=== PATIENT | male | born 1965 | race Caucasian/White ===

== ENCOUNTER 2020-09-17 11:15 | Outpatient (REF) | payer BC, SELFPAY ==
[2020-09-17 13:19] LABS: MANUAL DIFF FLAG NO
[2020-09-17 13:22] LABS: Basophils Absolute Auto 0.1 X10*3/uL (0.0-0.2); Basophils Percent Auto 0.8 % (0-2); Eosinophils Absolute Auto 0.3 X10*3/uL (0.0-0.4); Eosinophils Percent Auto 3.2 % (0-4); Hematocrit 43.7 % (42-52); Imm Gran Abs Auto 0.03 X10*3/uL (0.00-0.03); Imm Gran Pct Auto 0.4 % (0.0-0.4); Lymphocytes Absolute Auto 2.8 X10*3/uL (1.2-4.9); Lymphocytes Percent Auto 36.3 % (20-40); Mean Corpuscular HGB Conc 34.3 g/dl (31.0-36.0); Mean Corpuscular Hemoglobin 29.9 pg (27.0-33.0); Mean Corpuscular Volume 87.2 fL (80-98); Mean Platelet Volume 9.4 fL (9.4-12.4); Monocytes Absolute Auto 0.6 X10*3/uL (0.1-1.2); Monocytes Percent Auto 7.5 % (2-11); Neutrophils Percent Auto 51.8 % (45-73); Platelet Count 300 X10*3/uL (160-400); Red Blood Count 5.01 X10*6/uL (4.60-5.80); Red Cell Distribution Width 11.9 % (11.0-16.0); White Blood Count 7.7 X10*3/uL (4.8-10.8)
[2020-09-17 13:58] LABS: Alanine Aminotransferase 28 U/L (0-40); Albumin Level 4.5 g/dL (3.5-5.0); Alkaline Phosphatase 67 U/L (39-117); Anion Gap 12 (12-20); Aspartate Amino Transferase 22 U/L (5-37); Bilirubin Total 0.3 mg/dL (0.0-1.0); Blood Urea Nitrogen 18 mg/dL (9-16); Calcium 9.9 mg/dL (8.4-10.2); Carbon Dioxide 27 mmol/L (22-29); Chloride 104 mmol/L (96-108); Estimated Glomerular Filt Rate > 60; Glucose Random 96 mg/dL (60-115); Potassium 4.7 mmol/L (3.3-5.1); Sodium 138 mmol/L (135-145); Total Protein 6.7 g/dL (6.5-8.0)
== END 2020-09-17 11:16 | disposition home or self-care (01) ==
LOC: HO.LAB 11:15
PROVIDERS: PCP Nurse Practitioner Family; Referring Provider Nurse Practitioner Family; Visit Provider Nurse Practitioner
DX: Z01.818 Encounter for other preprocedural examination (principal)
CPT/HCPCS: 36415; 80053; 85025

== ENCOUNTER 2020-10-30 12:17 | Day surgery (SDC) | payer BC, SELFPAY ==
[2020-10-25 10:44] VITALS: BMI 39.1
--- NOTE | 2020-10-29 09:06 | HO.ANESPROP2 ---
Documented by User: Alicia Burdick NP 10/29/20 09:07 HPI - Anesthesia Eval Consult details Narrative: 55yo M for Colonoscopy [facility] Active Problems Active Problems: All Active Problems (Updated 10/25/20 @ 10:40 by Amber Lewis RN) Screening for colon cancer (Acute) Past Medical History Medical History (Updated 10/25/20 @ 10:40 by Amber Lewis RN) Back pain Elevated cholesterol Sciatica Surgical History Surgical History (Updated 10/25/20 @ 10:40 by Amber Lewis RN) No pertinent past surgical history Social History Social History Patient Tobacco Use Status: Tobacco use Unknown Advance Directives Information Provided: No Advance Directives on File: No Meds Allergies Allergy/AdvReac Type Severity Reaction Status Date / Time Antihistamines AdvReac Intermediate Rash Uncoded 10/25/20 10:40 Exam Exam Date and Time: October 29, 2020905 Height,Weight and Vital Signs: Height 5 ft 9 in Weight 120.202 kg Pertinent Lab Results Pertinent Lab Results: Laboratory Tests 09/17/20 09/17/20 12:42 12:42 WBC 7.7 Hgb 15.0 Hct 43.7 Plt Count 300 Sodium 138 Potassium 4.7 Chloride 104 Carbon Dioxide 27 BUN 18 H Creatinine 0.92 Assessment and Plan Assessment Anesthesia Assessment: Chart Reviewed Documented by User: Rosas Perez MD 10/30/20 13:21 PMFSH Past Medical History Medical History (Updated 10/25/20 @ 10:40 by Amber Lewis RN) Back pain Elevated cholesterol Sciatica Family History Family history of problems with anesthesia: No Surgical History Surgical History (Updated 10/25/20 @ 10:40 by Amber Lewis RN) No pertinent past surgical history History of Problems with Anesthesia: No Social History Social History Patient Tobacco Use Status: Tobacco use Unknown Advance Directives Information Provided: No Advance Directives on File: No Meds Allergies Allergy/AdvReac Type Severity Reaction Status Date / Time Antihistamines AdvReac Intermediate Rash Uncoded 10/25/20 10:40 Exam Airway Mallampati Class: II TM Dist: >3cm Neck ROM: Full Loose/Missing/Broken Teeth: No Other: Short, thick neck Assessment and Plan Assessment Anesthesia Assessment: Anesthesia Plan Discussed Final Anesthetic Review Family History of Problems with Anesthesia: No History of Problems with Anesthesia: No NPO: Yes ASA Class: II Final Preanesthetic Review: No Changes in Pt Med Stat, Meds/Allgs Chart Reviewed, Consent Obtained/Reviewed and Anes Risks/Benef Reviewed Patient Risk: Intermediate Procedure Risk: Low Anesthetic Plan Anesthetic Plan: MAC: Disposition: Standard PACU
[2020-10-30 12:46] VITALS: BP 151/98; PULSE 60; RESP 16; TEMP 36.8; O2SAT 98
--- NOTE | 2020-10-30 13:26 | MHC.SHP ---
Pre-Procedural Eval Section A Date of Service: 10/30/20 The patient is an INPATIENT: No The History & Physical has been completed within 30 days and I have reviewed it.: No Section B Chief Complaint: Colon cancer Screening Details of Present Illness: Colon cancer screening, constipation Relevant Family History (Specify if Yes): No Relevant Social History: None Present Medications: see Short Stay Collaborative assessment Medical History: Significant History (Back pain, sciatica) Allergies: Allergies Allergy/AdvReac Type Severity Reaction Status Date / Time Antihistamines AdvReac Intermediate Rash Uncoded 10/25/20 10:40 Review of Systems Sugical H&P ROS: Negative: Constitution, Cardiovascular and Gastrointestinal Exam Surgical H&P Exam: Normal: Heart, Normal: Lungs, Normal: Extremities and Normal: Abdomen Plan Diagnosis/Plan: Unchanged I have reviewed the history and physical and performed a pertinent physical examination on my patient. No changes have occurred unless specified.
--- NOTE | 2020-10-30 13:28 | P.OP_ITS ---
Operative Note Operative Note Date of Service: 10/30/20 Narrative: Pre-op diagnosis:?Colon cancer screening Post-op diagnosis:?other (Colon polyps, diverticulosis, hemorrhoids) Procedure:? COLONOSCOPY TILL CECUM WITH BIOPSIES AND SNARE POLYPECTOMY Consent: Indications for the procedure and potential complications of bleeding, perforation, reaction to medications and missed diagnosis were discussed with the patient and informed consent was obtained. Instrument: Olympus PCF H 190 L variable stiffness pediatric colonoscope Monitoring: Vital signs and clinical assessment, intermittent blood pressure monitoring, continuous EKG monitoring, Pulse oximetry and Carbon Dioxide monitoring were done throughout the procedure. Colon withdrawl time was 30 minutes. Procedure: The patient was placed in the left lateral decubitis position and pre-procedure medications were administered. After a digital rectal examination of the ano-rectum, the video colonoscope was inserted into the rectum and advanced through the colon to the cecum. The colonoscope was slowly withdrawn in a retrograde panoramic fashion and the colon mucosa was carefully examined including a retroflexed view of the rectum. Findings and interventions are described below. Procedure Difficulty: Colon was long and there was spasm throughout the colon. No manuvers were required Findings: Terminal Ileum: Not evaluated Cecum:? A 4-5 mm sessile polyp near the appendicular orifice removed with a cold bx. Ascending Colon:? Normal Transverse Colon:? A 7-8 mm polyp versus inverted diverticulum in the proximal TC - biopsied.? A 10 mm pedunculated polyp at 100 cms removed with a hot snare Descending Colon:? Moderate diverticulosis Sigmoid Colon:? Moderate diverticulosis Rectum:? Normal Ano-rectum:? Moderate internal hemorrhoids Colon preparation:? Good despite copious irrigation and fair in some areas of the colon. Impression and Post Procedure Diagnosis: Colonoscopy Findings: Three small to medium sized polyps removed Moderate diverticulosis seen in the entire colon Moderate hemorrhoids on retroflexed exam. Plan: Await pathology results Patient has an appointment on 11/13/20 in the GI Clinic with? Sasha Villa NP. Repeat Colonoscopy interval based on path results - in 3 years if polyps are adenomatous and 10 years if polyps are hyperplastic. Above findings were reviewed with the patient and colon polyps and diverticulosis handouts were given in the discharge area Surgeon:?Evita Mitchell MD Anesthesia:?MAC (Chary Leung CRNA) Was an Supervisor Furnace Process used for this Procedure?:?Yes Supervisor Furnace Process:?[facility] Estimated blood loss (mL):?0 Pathology:?other (A. cecal polyp? B. transverse colon polyp? C. transverse colon polyp at 100 cm) Condition:?stable Disposition:?PACU
[2020-10-30 15:18] VITALS: BP 117/64; PULSE 70; RESP 18; TEMP 36.1; O2SAT 96
[2020-10-30 15:30] VITALS: BP 121/79; PULSE 60; RESP 18; TEMP 36.1; O2SAT 96
== END 2020-10-30 15:50 | disposition home or self-care (01) ==
PROVIDERS: PCP Nurse Practitioner Family; Visit Provider Internal Medicine Gastroenterology
PROC: 0DJD8ZZ Inspection of Lower Intestinal Tract, Via Natural or Artificial Opening Endoscopic (ICD-10-PCS; CPT 45378; principal; 2020-10-30 13:20)
DX: Z12.11 Encounter for screening for malignant neoplasm of colon (principal); D12.0 Benign neoplasm of cecum; K63.5 Polyp of colon; K57.30 Diverticulosis of large intestine without perforation or abscess without bleeding; K64.8 Other hemorrhoids
CPT/HCPCS: 45385; 45380; 88305

== ENCOUNTER → 2020-11-13 11:54 | Outpatient (BNVA) | payer BC, SELFPAY | PROVIDERS: PCP Nurse Practitioner Family; Referring Provider Nurse Practitioner Family; Visit Provider Nurse Practitioner ==

== ENCOUNTER 2021-01-18 06:05 | Outpatient (REF) | payer BC, SELFPAY ==
[2021-01-18 11:42] LABS: Appearance Urine CLOUDY; Color Urine YELLOW; Glucose Urine UA NEG (NEG); Leukocyte Esterase Urine NEG (NEG); Nitrite Urine NEG (NEG); Specific Gravity - Urine >= 1.030 (1.005-1.025); Urine Blood NEG (NEG); Urine Ketones NEG (NEG); Urine Protein NEG (NEG-TRACE)
[2021-01-18 12:04] LABS: Alanine Aminotransferase 32 U/L (0-40); Albumin Level 4.5 g/dL (3.5-5.0); Alkaline Phosphatase 65 U/L (39-117); Anion Gap 15 (12-20); Aspartate Amino Transferase 24 U/L (5-37); Bilirubin Total 0.9 mg/dL (0.0-1.0); Blood Urea Nitrogen 22 mg/dL (9-16); Calcium 9.7 mg/dL (8.4-10.2); Carbon Dioxide 26 mmol/L (22-29); Chloride 103 mmol/L (96-108); Cholesterol 210 mg/dL; Estimated Glomerular Filt Rate > 60; Glucose Fasting 125 mg/dL (60-99); HDL Cholesterol 31 mg/dL; LDL Cholesterol Calculated 117 mg/dl; Potassium 4.9 mmol/L (3.3-5.1); Sodium 139 mmol/L (135-145); Total Protein 7.2 g/dL (6.5-8.0); Triglycerides 313 mg/dL
[2021-01-18 12:28] LABS: TSH reflex Free T4 1.25 uIU/mL (0.32-4.0)
[2021-01-18 12:43] LABS: Prostate Specific Antigen Scr 0.52 ng/mL (<0.05-4.0)
== END 2021-01-18 06:06 | disposition home or self-care (01) ==
LOC: HO.HMGCLDS 06:05
PROVIDERS: PCP Nurse Practitioner Family; Visit Provider Nurse Practitioner Family
DX: I10 Essential (primary) hypertension (principal); Z12.5 Encounter for screening for malignant neoplasm of prostate
CPT/HCPCS: 36415; 80053; 80061; 81003; 84153; 84443

== ENCOUNTER 2021-07-26 05:59 | Outpatient (REF) | payer BC, SELFPAY ==
[2021-07-26 11:18] LABS: MANUAL DIFF FLAG NO
[2021-07-26 11:23] LABS: Basophils Percent Auto 0.6 % (0-2); Eosinophils Absolute Auto 0.2 X10*3/uL (0.0-0.4); Eosinophils Percent Auto 2.9 % (0-4); Hematocrit 45.7 % (42.0-52.0); Hemoglobin 15.2 g/dl (14.0-18.0); Imm Gran Abs Auto 0.02 X10*3/uL (0.00-0.03); Imm Gran Pct Auto 0.3 % (0.0-0.4); Lymphocytes Absolute Auto 2.3 X10*3/uL (1.2-4.9); Lymphocytes Percent Auto 36.9 % (20-40); Mean Corpuscular HGB Conc 33.3 g/dl (31.0-36.0); Mean Corpuscular Hemoglobin 29.2 pg (27.0-33.0); Mean Corpuscular Volume 87.9 fL (80.0-98.0); Mean Platelet Volume 9.7 fL (9.4-12.4); Monocytes Absolute Auto 0.5 X10*3/uL (0.1-1.2); Monocytes Percent Auto 7.8 % (2-11); Neutrophils Absolute Auto 3.2 x10*3/uL (2.0-8.3); Neutrophils Percent Auto 51.5 % (45-73); Platelet Count 302 X10*3/uL (160-400); Red Cell Distribution Width 12.8 % (11.0-16.0); White Blood Count 6.2 X10*3/uL (4.8-10.8)
[2021-07-26 11:33] LABS: Appearance Urine CLEAR; Color Urine YELLOW; Glucose Urine UA NEG (NEG); Leukocyte Esterase Urine NEG (NEG); Nitrite Urine NEG (NEG); Specific Gravity - Urine 1.025 (1.005-1.025); UACC Culture Trigger NO; Urine Blood TRACE (NEG); Urine Ketones NEG (NEG); Urine Protein NEG (NEG-TRACE)
[2021-07-26 11:45] LABS: Alanine Aminotransferase 33 U/L (0-40); Albumin Level 4.5 g/dL (3.5-5.0); Alkaline Phosphatase 61 U/L (39-117); Anion Gap 13 (12-20); Aspartate Amino Transferase 21 U/L (5-37); Bilirubin Total 0.5 mg/dL (0.0-1.0); Blood Urea Nitrogen 15 mg/dL (9-16); Calcium 9.5 mg/dL (8.4-10.2); Carbon Dioxide 24 mmol/L (22-29); Chloride 105 mmol/L (96-108); Cholesterol 209 mg/dL; Estimated Glomerular Filt Rate > 60; Glucose Fasting 121 mg/dL (60-99); HDL Cholesterol 30 mg/dL; Potassium 4.5 mmol/L (3.3-5.1); Sodium 137 mmol/L (135-145); Total Protein 7.2 g/dL (6.5-8.0); Triglycerides 527 mg/dL
[2021-07-26 11:56] LABS: TSH reflex Free T4 2.35 uIU/mL (0.32-4.0)
[2021-07-26 11:57] LABS: Bacteria Urine TRACE /LPF; Mucus Urine TRACE /LPF; Squamous Epithelial Cell Urine TRACE /LPF; WBC Urine 0-2 /HPF (0-4)
== END 2021-07-26 06:00 | disposition home or self-care (01) ==
LOC: HO.HMGCLDS 05:59
PROVIDERS: Visit Provider Nurse Practitioner Family
DX: I10 Essential (primary) hypertension (principal); E78.5 Hyperlipidemia, unspecified
CPT/HCPCS: 36415; 80053; 80061; 81001; 84443; 85025

== ENCOUNTER 2021-09-27 06:22 | Outpatient (REF) | payer BC, SELFPAY ==
[2021-09-27 11:33] LABS: Urine Cytology See Pathology rpt
[2021-09-27 12:02] LABS: Appearance Urine Cloudy; Color Urine Yellow; Glucose Urine UA Negative (Negative); Leukocyte Esterase Urine Negative (Negative); Nitrite Urine Negative (Negative); PH 5.5 (5.0-8.0); Specific Gravity - Urine >= 1.030 (1.005-1.025); Urine Blood Negative (Negative); Urine Ketones Negative (Negative); Urine Protein Negative (Neg-Trace)
[2021-09-27 12:09] LABS: Alanine Aminotransferase 58 U/L (0-40); Albumin Level 4.6 g/dL (3.5-5.0); Alkaline Phosphatase 69 U/L (39-117); Anion Gap 13 (12-20); Aspartate Amino Transferase 34 U/L (5-37); Bilirubin Total 0.9 mg/dL (0.0-1.0); Blood Urea Nitrogen 19 mg/dL (9-16); Calcium 9.6 mg/dL (8.4-10.2); Carbon Dioxide 27 mmol/L (22-29); Chloride 102 mmol/L (96-108); Cholesterol 174 mg/dL; Estimated Glomerular Filt Rate > 60; Glucose Fasting 135 mg/dL (60-99); HDL Cholesterol 35 mg/dL; LDL Cholesterol Calculated 60 mg/dl; Potassium 4.4 mmol/L (3.3-5.1); Sodium 138 mmol/L (135-145); Total Protein 7.3 g/dL (6.5-8.0); Triglycerides 397 mg/dL
[2021-09-27 12:24] LABS: Other Crystals Urine Present
[2021-09-27 12:25] LABS: Bacteria Urine None Seen (None Seen); Hyaline Casts Urine 0-2 /LPF (0-2); RBC Urine 0-2 /HPF (0-2); Squamous Epithelial Cell Urine 0-2 /HPF (0-2); WBC Urine 0-5 /HPF (0-5)
== END 2021-09-27 06:23 | disposition home or self-care (01) ==
LOC: HO.HMGCLDS 06:22
PROVIDERS: PCP Nurse Practitioner Family; Visit Provider Nurse Practitioner Family
DX: R31.29 Other microscopic hematuria (principal); E78.5 Hyperlipidemia, unspecified
CPT/HCPCS: 36415; 80053; 80061; 81001; 87086; 88112

== ENCOUNTER 2021-10-02 09:56 | Outpatient (REF) | payer BC, SELFPAY ==
--- NOTE | ~2021-10-02 | US_ITS ---
EXAMINATION: US ABDOMEN COMPLETE CLINICAL INFORMATION: Elevated LFTs. COMPARISON: None TECHNIQUE: Real-time imaging of the abdominal viscera. FINDINGS: PANCREAS: Not well visualized due to bowel gas ABDOMINAL AORTA: The upper and mid abdominal aorta is not visualized. The distal abdominal aorta is normal in caliber. INFERIOR VENA CAVA: Visualized portions are normal. LIVER: The liver is normal in size. The liver contour is normal. The liver echotexture is increased. No focal hepatic lesion. There is no intrahepatic biliary duct dilatation seen. GALLBLADDER: Gallbladder is upper normal in size. No gallstones. Normal gallbladder wall. No pericholecystic fluid. COMMON BILE DUCT: Normal in caliber measuring 0.3 cm in diameter. RIGHT KIDNEY: Normal. No hydronephrosis. No renal calculi or focal parenchymal lesions. The kidney measures 12.1 cm in maximum dimension. LEFT KIDNEY: Normal. No hydronephrosis. No renal calculi or focal parenchymal lesions. The kidney measures 12.4 cm in maximum dimension. SPLEEN: Normal. The spleen measures 11.7 cm in maximum dimension. FREE FLUID: None. US/US abdomen complete IMPRESSION: Echogenic liver probably representing fatty infiltration. Upper normal-size gallbladder. No gallstone seen. Limited visualization of the pancreas and aorta.
== END 2021-10-02 09:57 | disposition home or self-care (01) ==
LOC: HO.HMGCX 09:56
PROVIDERS: Visit Provider Nurse Practitioner Family
DX: R74.8 Abnormal levels of other serum enzymes (principal)
CPT/HCPCS: 76700

== ENCOUNTER 2022-01-09 06:02 | Outpatient (REF) | payer BC, SELFPAY ==
[2022-01-09 12:06] LABS: HBS Num1 0.71 mIU/mL (0-7.99); HBc Num1 0.09 S/CO (0.00-0.79); HBsAGNum1 0.26 S/CO (0.00-0.99); Hepatitis B Core Antibody Nonreactive (Nonreactive); Hepatitis B Surface Antigen Negative (Negative); ~Hepatitis A Antibody IgM Nonreactive (Nonreactive); ~Hepatitis B Surface Antibody NONREACTIVE (Nonreactive); ~Hepatitis C Antibody Nonreactive (Nonreactive)
[2022-01-09 12:27] LABS: Alanine Aminotransferase 52 U/L (0-40); Albumin Level 4.6 g/dL (3.5-5.0); Alkaline Phosphatase 71 U/L (39-117); Anion Gap 10 (12-20); Aspartate Amino Transferase 35 U/L (5-37); Bilirubin Total 0.8 mg/dL (0.0-1.0); Blood Urea Nitrogen 16 mg/dL (9-16); Calcium 10.2 mg/dL (8.4-10.2); Carbon Dioxide 32 mmol/L (22-29); Chloride 100 mmol/L (96-108); Cholesterol 152 mg/dL; Estimated Glomerular Filt Rate > 60; Glucose Fasting 136 mg/dL (60-99); HDL Cholesterol 33 mg/dL; LDL Cholesterol Calculated 79 mg/dl; Potassium 5.3 mmol/L (3.3-5.1); Prostate Specific Antigen Scr 0.54 ng/mL (<0.05-4.0); Sodium 137 mmol/L (135-145); Total Protein 7.2 g/dL (6.5-8.0); Triglycerides 202 mg/dL
== END 2022-01-09 06:03 | disposition home or self-care (01) ==
LOC: HO.HMGCLDS 06:02
PROVIDERS: PCP Nurse Practitioner Family; Visit Provider Nurse Practitioner Family
DX: Z12.5 Encounter for screening for malignant neoplasm of prostate (principal); R74.8 Abnormal levels of other serum enzymes; E78.5 Hyperlipidemia, unspecified
CPT/HCPCS: 36415; 80053; 80061; 84153; 86704; 86706; 86709; 86803; 87340

== ENCOUNTER 2022-01-17 08:36 | Outpatient (REF) | payer BC, SELFPAY ==
[2022-01-17 13:25] LABS: Anion Gap 15 (12-20); Carbon Dioxide 23 mmol/L (22-29); Chloride 102 mmol/L (96-108); Potassium 4.4 mmol/L (3.3-5.1); Sodium 136 mmol/L (135-145)
== END 2022-01-17 08:37 | disposition home or self-care (01) ==
LOC: HO.HMGCLDS 08:36
PROVIDERS: PCP Nurse Practitioner Family; Visit Provider Nurse Practitioner Family
DX: E87.5 Hyperkalemia (principal)
CPT/HCPCS: 36415; 80051

== ENCOUNTER → 2022-02-12 15:17 | Outpatient (BNVA) | payer BC, SELFPAY | PROVIDERS: PCP Nurse Practitioner Family; Visit Provider Urology | DX: R31.29 Other microscopic hematuria (principal) ==

== ENCOUNTER 2022-07-23 12:40 | Outpatient (REF) | payer BC, SELFPAY ==
[2022-07-26 14:53] LABS: A. Phagocytphilium DNA,RT-PCR NOT DETECTED (NOT DETECTED); Babesia Microti DNA, RT-PCR NOT DETECTED (NOT DETECTED); Borrelia Miyamotoi,DNA RT-PCR NOT DETECTED (NOT DETECTED); E.Chaffeensis DNA RT-PCR NOT DETECTED (NOT DETECTED); Lyme(Borrelia ssp)DNA RT-PCR NOT DETECTED (NOT DETECTED)
== END 2022-07-23 12:41 | disposition home or self-care (01) ==
LOC: HO.HMGCLDS 12:40
PROVIDERS: PCP Nurse Practitioner Family; Visit Provider Nurse Practitioner Family
DX: S30.861A Insect bite (nonvenomous) of abdominal wall, initial encounter (principal); W57.XXXA Bitten or stung by nonvenomous insect and other nonvenomous arthropods, initial encounter
CPT/HCPCS: 36415; 87798; 87801

== ENCOUNTER 2022-11-05 10:02 | Outpatient (AMB) | payer BC, SELFPAY ==
--- NOTE | 2022-11-05 10:18 | MHC.PC.OV ---
Vital Signs 11/05/22 10:20 Height 5 ft 9 in Weight 279 lb BMI 41.2 BP 130/90 H Blood Pressure Location Lt brachial Position Sitting Pulse 72 Pulse Source Pulse Oximeter Pulse Oximetry (%) 97 Oxygen Delivery Method Room Air Intake Visit Reasons: medication Allergies Antihistamines Adverse Reaction (Intermediate, Uncoded 11/05/22 10:20) Rash Tobacco use date assessed: 11/05/22 HPI medication HPI Details Pt is a newly-diagnosed diabetic, on a statin. Will order A1C and microalbumin. Denies polyuria, polydipsia, and neuropathy. Pt denies any signs and symptoms of hypoglycemia and does know how to correct it. Will start losartan 25mg for renal protection and elevated blood pressure. Will refer for eye exam. Will send meter and supplies, educated on bid testing. Will refer to nurse navigator. will have pt take his sugars in the am, and one other time throughout the day (randomly). will follow up with him COUNT INCLUDES [facility] Medical History Fatty liver Back pain Sciatica Elevated cholesterol Surgical History H/O colonoscopy No pertinent past surgical history Social History Housing: House Alcohol intake: current Patient Tobacco Use Status: Never used Tobacco Current occupational status: employed Cognitive needs: No Hearing needs: No Vision needs: No Questionnaire Thrive Questionnaire Date Thrive assessed: 01/10/21 GHASSAN-7 AMB Questionnaire GHASSAN-7 Date GHASSAN - 7 assessed: 01/10/21 Source: Developed by Drs. Scott Avendano, Dayanna Bolanos, Eamon Guajardo and colleagues, with an educational jazz from [employer]. Review of Systems Const Reports as per HPI Physical exam (Primary Care) Vital Signs: Last Vital Signs Pulse 72 11/05/22 10:20 BP 130/90 H 11/05/22 10:20 Pulse Ox 97 11/05/22 10:20 Oxygen Delivery Method Room Air 11/05/22 10:20 BMI result Body Mass Index 41.2 Tobacco/Smoking Status: Tobacco use Status Tobacco use date assessed 09/27/23 09/27/23 10:23 Patient Tobacco Use Status Never used Tobacco 11/05/22 10:19 Thrive Assessment: Date of Thrive Assessment Date Thrive assessed 01/10/21 11/05/22 10:19 Const General: cooperative Nutritional Appearance: obese morbidly obese Orientation/consciousness: patient oriented x3 Neuro General: patient oriented x3 Psych Appearance: grossly normal Mental Status: mental status grossly normal Speech and movement: Normal speech and movement present Affect: normal affect Attitude: cooperative Thought process: Normal thought process present Thought content: Normal thought content present Insight: Good insight present (Psych) Judgement: Good judgement present (Psych) Immunizations pneumoc 20-isabella conj-dip cr(PF) 0.5 mL IM syringe Performing Provider: SILVIA Rosenthal Performing Location: [facility] Administered by: Joe Alfaro CMA on 11/05/22 11:01 Dose Route Admin Location Dispensed Lot Number Expiration Date NDC [employer] 0.5 mL IM Left Deltoid 0.5 mL [id number] 12/10/23 [employer] VIS Given Date VIS Provided VIS Publication Date 11/05/22 Single Vaccine 21 Eligibility Eligibility Date Funding Source Not [facility] Eligible 11/05/22 Private Assessment and Plan Assessment & Plan (1) Diabetes: Code(s): E11.9 - Type 2 diabetes mellitus without complications Plan: Labs ordered, referred to [facility] (2) Screening PSA (prostate specific antigen): Code(s): Z12.5 - Encounter for screening for malignant neoplasm of prostate Plan: PSA ordered Plan The patient agreed to the use of a medical officer psychiatry for this encounter. Scribed for SILVIA Jules by tessie Han scribe, on 11/05/2022 at 10:30 EST. Orders: Orders Comprehensive [place]. Panel Fast Today E11.9 - Type 2 diabetes mellitus without complications UA CC w/rflx Micro + Cult Today E11.9 - Type 2 diabetes mellitus without complications Lipid Panel Today E11.9 - Type 2 diabetes mellitus without complications Hemoglobin A1c Today E11.9 - Type 2 diabetes mellitus without complications Microalbumin, Random (w Creat) Today E11.9 - Type 2 diabetes mellitus without complications Prostate Specific Antigen Scr Today Z12.5 - Encounter for screening for malignant neoplasm of prostate Complete Blood Count Auto Diff Today E11.9 - Type 2 diabetes mellitus without complications TSH reflex Free T4 Today E11.9 - Type 2 diabetes mellitus without complications Pneumococcal 20 Immunization Today Z23 - Encounter for immunization Referrals Optometry Referral E11.9 - Type 2 diabetes mellitus without complications Nurse Navigator Referral E11.9 - Type 2 diabetes mellitus without complications Medications: New losartan 25 mg PO DAILY 90 tabs 0RF Coding Level of Care Code Est Pt Level 3 (90195) Diagnoses Diabetes E11.9 Screening PSA (prostate specific antigen) Z12.5
[2022-11-05 10:20] VITALS: BP 130/90; PULSE 72; O2SAT 97; BMI 41.2
== END 2022-11-05 12:08 | disposition home or self-care (01) ==
PROVIDERS: PCP Nurse Practitioner Family; Visit Provider Nurse Practitioner Family
DX: E11.9 Type 2 diabetes mellitus without complications (principal); Z12.5 Encounter for screening for malignant neoplasm of prostate; Z23 Encounter for immunization
CPT/HCPCS: 90471; 90677; 99213

== ENCOUNTER 2022-11-13 10:58 | Outpatient (REF) | payer BC, SELFPAY ==
[2022-11-13 13:12] LABS: Basophils Absolute Auto 0.1 X10*3/uL (0.0-0.2); Basophils Percent Auto 0.8 % (0-2); Eosinophils Absolute Auto 0.2 X10*3/uL (0.0-0.4); Eosinophils Percent Auto 3.2 % (0-4); Hematocrit 45.6 % (42.0-52.0); Hemoglobin 15.6 g/dl (14.0-18.0); Imm Gran Abs Auto 0.02 X10*3/uL (0.00-0.03); Imm Gran Pct Auto 0.3 % (0.0-0.4); Lymphocytes Absolute Auto 3.2 X10*3/uL (1.2-4.9); Lymphocytes Percent Auto 41.7 % (20-40); MANUAL DIFF FLAG SCAN; Mean Corpuscular HGB Conc 34.2 g/dl (31.0-36.0); Mean Corpuscular Hemoglobin 29.5 pg (27.0-33.0); Mean Corpuscular Volume 86.4 fL (80.0-98.0); Mean Platelet Volume 9.4 fL (9.4-12.4); Monocytes Absolute Auto 0.5 X10*3/uL (0.1-1.2); Monocytes Percent Auto 7.1 % (2-11); Neutrophils Absolute Auto 3.6 x10*3/uL (2.0-8.3); Neutrophils Percent Auto 46.9 % (45-73); Platelet Count 294 X10*3/uL (160-400); Red Blood Count 5.28 X10*6/uL (4.60-5.80); Red Cell Distribution Width 12.1 % (11.0-16.0); SCAN SMEAR FLAG 1; White Blood Count 7.6 X10*3/uL (4.8-10.8)
[2022-11-13 13:14] LABS: Appearance Urine Clear; Color Urine Yellow; Glucose Urine UA Negative (Negative); Leukocyte Esterase Urine Negative (Negative); Nitrite Urine Negative (Negative); PH 5.5 (5.0-9.0); Urine Blood Negative (Negative); Urine Ketones Negative (Negative); Urine Protein Negative (Neg-Trace)
[2022-11-13 13:30] LABS: Creatinine Urine 64.75 mg/dL; Microalbumin Urine < 5.0 mg/L
[2022-11-13 13:38] LABS: Alanine Aminotransferase 45 U/L (0-40); Albumin Level 4.5 g/dL (3.5-5.0); Alkaline Phosphatase 64 U/L (39-117); Anion Gap 18 (12-20); Aspartate Amino Transferase 32 U/L (5-37); Bilirubin Total 0.9 mg/dL (0.0-1.0); Blood Urea Nitrogen 15 mg/dL (9-16); Carbon Dioxide 24 mmol/L (22-29); Chloride 101 mmol/L (96-108); Cholesterol 153 mg/dL (<200); Estimated Glomerular Filt Rate > 60; Glucose Fasting 113 mg/dL (60-99); HDL Cholesterol 31 mg/dL (>40); LDL Cholesterol Calculated 78 mg/dL (<100); Potassium 4.5 mmol/L (3.3-5.1); Sodium 138 mmol/L (135-145); Total Protein 7.5 g/dL (6.5-8.0); Triglycerides 224 mg/dL (<150)
[2022-11-13 13:41] LABS: TSH reflex Free T4 1.95 uIU/mL (0.32-4.0)
[2022-11-13 13:46] LABS: Estimated Average Glucose 126 mg/dL
[2022-11-13 13:50] LABS: Prostate Specific Antigen Scr 0.64 ng/mL (<0.05-4.0)
[2022-11-13 13:55] LABS: SLIDE REVIEW VERIFIED
== END 2022-11-13 10:59 | disposition home or self-care (01) ==
LOC: HO.HMGCLDS 10:58
PROVIDERS: PCP Nurse Practitioner Family; Visit Provider Nurse Practitioner Family
DX: Z12.5 Encounter for screening for malignant neoplasm of prostate (principal); E11.9 Type 2 diabetes mellitus without complications
CPT/HCPCS: 36415; 80053; 80061; 81003; 82570; 83036; 84153; 84443; 85025

== ENCOUNTER 2023-05-22 08:13 | Outpatient (AMB) | payer SELFPAY ==
--- NOTE | 2023-05-22 08:26 | AM.OFFWIN_ITS ---
Intake Vital Signs 3 05/22/23 08:27 Height 5 ft 9 in Weight 279 lb BMI 41.2 BP 140/80 H Blood Pressure Location Lt brachial Position Sitting Pulse 80 Pulse Source Pulse Oximeter Temp 98.4 F Temp Source Oral Pulse Oximetry (%) 95 Oxygen Delivery Method Room Air Intake Visit Reasons: EP eyes swollen (lobby) Intake Note: pt is here for left eye swollen, denies blurred vision Patient Tobacco Use Status: Never used Tobacco Allergies Antihistamines Adverse Reaction (Intermediate, Uncoded 05/22/23 08:27) Rash Medication List - Last Reconciled 05/22/23 by Bibi Christian MD atorvastatin 20 mg PO BEDTIME blood sugar diagnostic ([employer] Ultra Test strips) Test blood sugar once a day blood-glucose meter ([employer] Ultra2 Meter) Test blood sugar once a day lancets ([employer] Delica Plus Lancet) Test blood sugar once a day losartan 25 mg PO DAILY omega-3 acid ethyl esters 2 caps PO BID 90 days Do you need a note to return to daycare/school/sports/work: Yes HPI EP eyes swollen (lobby) 2 HPI0 Details 57-year-old gentleman Has developed swelling left eye for the past 2 or 3 days Patient says that he has some itching in his eyes as well Vision is fine no tearing in the eye On examination patient has developed stye lower eyelid left eye Last ophthalmology exam 6 months ago There is no fever no chills no sore throat no cough no headache I am treating him with Polytrim eyedrops q.i.d. for 7 days He is to apply warm compresses in between and gently massage lower eyelid to open the duct. If not better in 7 days patient should follow up with the primary care [facility] Medical History Seborrheic dermatitis Fatty liver Back pain Sciatica Elevated cholesterol Surgical History H/O colonoscopy No pertinent past surgical history Social History Housing: House Alcohol intake: current Patient Tobacco Use Status: Never used Tobacco Current occupational status: employed Cognitive needs: No Hearing needs: No Vision needs: No Review of Systems Const All systems reviewed & are unremarkable except as noted in HPI and below Physical Exam Vital Signs: Last Vital Signs Temp 98.4 F 05/22/23 08:27 Pulse 80 05/22/23 08:27 BP 140/80 H 05/22/23 08:27 Pulse Ox 95 05/22/23 08:27 Oxygen Delivery Method Room Air 05/22/23 08:27 BMI result Body Mass Index 41.2 Const General: no acute distress Orientation/consciousness: patient oriented x3 Eyes Eyelids: Yes eyelid abnormality (Mild injection left eye) Pupils: Equal, round and reactive pupils present EOM: EOMs intact bilaterally Eyes/upper lids images: 2 1. Swelling lower eyelid Resp Effort & Inspection: normal respiratory effort and able to speak in complete sentences Auscultation: clear to auscultation bilaterally Neuro General: patient oriented x3 Cranial nerves: Yes Equal, round and reactive pupils present Psych Mental Status: mental status grossly normal Assessment & Plan Assessment & Plan (1) Hordeolum externum left lower eyelid: Code(s): H00.015 - Hordeolum externum left lower eyelid Plan 57-year-old gentleman Has developed swelling left eye for the past 2 or 3 days Patient says that he has some itching in his eyes as well Vision is fine no tearing in the eye On examination patient has developed stye lower eyelid left eye Last ophthalmology exam 6 months ago There is no fever no chills no sore throat no cough no headache I am treating him with Polytrim eyedrops q.i.d. for 7 days He is to apply warm compresses in between and gently massage lower eyelid to open the duct. If not better in 7 days patient should follow up with the primary care Medications: New 2 polymyxin B sulf-trimethoprim 10,000 unit- 1 mg/mL while awake; 1 drp ophthalmic (eye) QID 10 mL 0RF 7 days Coding Level of Care Code Est Pt Level 3 (66421) Diagnoses Hordeolum externum left lower eyelid H00.015
[2023-05-22 08:27] VITALS: BP 140/80; PULSE 80; TEMP 36.9; O2SAT 95; BMI 41.2
== END 2023-05-22 09:53 | disposition home or self-care (01) ==
PROVIDERS: PCP Nurse Practitioner Family; Visit Provider Internal Medicine
DX: H00.015 Hordeolum externum left lower eyelid (principal)
CPT/HCPCS: 99213

== ENCOUNTER 2023-07-22 09:20 | Outpatient (AMB) | payer OTHER, SELFPAY ==
--- NOTE | 2023-07-22 09:21 | A.OFFPC_ITS ---
Vital Signs 07/22/23 09:22 Height 5 ft 9 in Weight 268 lb BMI 39.6 BP 138/88 Blood Pressure Location Rt brachial Position Sitting Pulse 78 Pulse Source Pulse Oximeter Pulse Oximetry (%) 98 Oxygen Delivery Method Room Air Intake Visit Reasons: dm follow up Intake Note: pt is here for DM follow up Medical Billing And Coding Specialist Required: No Accompanied by: Self / Same As Patient Allergies Antihistamines Adverse Reaction (Intermediate, Uncoded 07/22/23 09:22) Rash Tobacco use date assessed: 07/22/23 Dental Screening Dental Screen Date: 07/22/23 Did you have a dental visit in the last 12 months?: Yes Did you have a dental problem in the last 6 months where you did not have access to dental care?: No Was dental information given to patient?: Patient has dentist HPI dm follow up HPI Details Pt is a diabetic, on a statin. A1C in office today is 5.9. Microalbumin is up to date. Denies polyuria, polydipsia, and neuropathy. Pt denies any signs and symptoms of hypoglycemia and does know how to correct it. Pt will find his own eye doctor. [facility] Medical History Seborrheic dermatitis Fatty liver Back pain Sciatica Elevated cholesterol Surgical History H/O colonoscopy No pertinent past surgical history Social History Housing: House Alcohol intake: current Patient Tobacco Use Status: Never used Tobacco e-Cigarette/Vaping Use: Never Used Current occupational status: employed Cognitive needs: No Hearing needs: No Vision needs: No Questionnaire PHQ-9 Over the last 2 weeks, how often have you been bothered by any of the following problems? 1. Little interest or pleasure in doing things: several days 2. Feeling down, depressed, or hopeless: several days 3. Trouble falling or staying asleep, or sleeping too much: more than half the days 4. Feeling tired or having little energy: more than half the days 5. Poor appetite or overeating: more than half the days 6. Feeling bad about yourself - or that you are a failure or have let yourself or your family down: several days 7. Trouble concentrating on things, such as reading the newspaper or watching television: several days 8. Moving or speaking so slowly that other people could have noticed. Or the opposite - being so fidgety or restless that you have been moving around a lot more than usual: not at all 9. Thoughts that you would be better off or of hurting yourself in some way: not at all Total score: 10 Depression Screening Interpretation: Positive (refused therapist currently, denies any si or hi) Depression Screening Follow-up: Existing condition Depression Screening Done: Yes 44994 - PHQ-9 Billing: Yes Source: Developed by Drs. Scott Avendano, Dayanna Bolanos, Eamon Guajardo and colleagues, with an educational jazz from [employer]. Thrive Questionnaire Date Thrive assessed: 07/22/23 I am a: Patient What is your living situation today?: I have a steady place to live Within the past 12 months, did the food you bought not last and you didn't have the money to get more?: Never true Within the past 12 months, did you worry whether your food would run out before you got money to buy more?: Never true Do you have trouble paying for medicines?: No Do you have trouble getting transportation to medical appointments?: No Do you have trouble paying your heating and electricity bill?: No Do you have trouble taking care of your child, family member or friend?: No Do you have trouble with day-to-day activities such as bathing, preparing meals, shopping, managing finances, etc.?: No Are you currently unemployed and looking for a job?: No Are you interested in more education?: No Please select the resources that you would like help with: None Currently or been in a relationship where the following occur: no concerns reported THRIVE Score: 0 AUDIT C Alcohol Use Questionnaire (AUDIT-C) 1. How often do you have a drink containing alcohol?: 2-4 times a month 2. How many drinks containing alcohol do you have on a typical day when you are drinking?: 5 or 6 3. How often do you have six or more drinks on one occasion?: Weekly Total Score: 7 Score Reviewed/Action Taken: Yes GHASSAN-7 AMB Questionnaire GHASSAN-7 Date GHASSAN - 7 assessed: 07/22/23 Feeling nervous, anxious, or on edge: 2 = More than half the days Not being able to stop or control worryin = More than half the days Worrying too much about different things: 2 = More than half the days Trouble relaxin = Several days Being so restless that it is hard to sit still: 0 = Not at all Becoming easily annoyed or irritable: 3 = Nearly every day Feeling afraid as if something awful might happen: 1 = Several days Total GHASSAN-7 score (0-4 normal; 5-9 mild; 10-14 moderate; 15-21 severe): 11 Source: Developed by Drs. Scott Avendano, Dayanna Bolanos, Eamon Guajardo and colleagues, with an educational jazz from [employer]. GHASSAN-7 Assessment Billing GHASSAN-7 Assessment Tool: GHASSAN-7 Assessment 15682 (denies any SI or HI) Review of Systems Const Reports as per HPI Physical exam (Primary Care) Vital Signs: Last Vital Signs Pulse 78 07/22/23 09:22 BP 138/88 07/22/23 09:22 Pulse Ox 98 07/22/23 09:22 Oxygen Delivery Method Room Air 07/22/23 09:22 BMI result Body Mass Index 39.6 Tobacco/Smoking Status: Tobacco use Status Tobacco use date assessed 07/22/23 07/22/23 09:25 Patient Tobacco Use Status Never used Tobacco 07/22/23 09:25 e-Cigarette/Vaping Use Never Used 07/22/23 09:25 PHQ-9: PHQ-9 Score PHQ-9: Total score 10 07/22/23 09:52 Depression Screening Interpretation: Positive (refused therapist currently, denies any si or hi) Depression Screening Follow-up: Existing condition Thrive Assessment: Date of Thrive Assessment Date Thrive assessed 07/22/23 07/22/23 09:25 Currently or been in a relationship where the following occur: no concerns reported Const General: cooperative Nutritional Appearance: obese Orientation/consciousness: patient oriented x3 Resp Effort & Inspection: normal respiratory effort Auscultation: clear to auscultation bilaterally Cardio Rate: regular rate Rhythm: regular rhythm Heart sounds: S1 normal heart sound present and S2 normal heart sound present Neuro General: patient oriented x3 Extrem Other: bilat feet: + sensation with use of monofilament, feet intact Psych Appearance: grossly normal Mental Status: mental status grossly normal Speech and movement: Normal speech and movement present Affect: normal affect Attitude: cooperative Thought process: Normal thought process present Thought content: Normal thought content present Insight: Good insight present (Psych) Judgement: Good judgement present (Psych) Results AMB Hemoglobin A1c AMB Hemoglobin A1c 5.9 % Last Edit by Joe Alfaro CMA on 07/22/23 09: 44 Results Reviewed Results Reviewed: Laboratory Last Values Hgb A1c (Clinic) 5.9 % (4.0-6.0) 07/22/23 09:42 Assessment and Plan Assessment & Plan (1) Diabetes: Code(s): E11.9 - Type 2 diabetes mellitus without complications Plan: Labs ordered Plan The patient agreed to the use of a district medical examiner for this encounter. Scribed for SILVIA Jules by Karis Diego district medical examiner, on 07/22/2023 at 09:45 EST. Orders: Orders AMB Hemoglobin A1c Today Z13.9 - Encounter for screening, unspecified Comprehensive [place]. Panel Fast Today E11.9 - Type 2 diabetes mellitus without complications Complete Blood Count Auto Diff Today E11.9 - Type 2 diabetes mellitus without complications TSH reflex Free T4 Today E11.9 - Type 2 diabetes mellitus without complications UA CC w/rflx Micro + Cult Today E11.9 - Type 2 diabetes mellitus without complications Lipid Panel Today E11.9 - Type 2 diabetes mellitus without complications Coding Level of Care Code Est Pt Level 3 (11035) Diagnoses Diabetes E11.9 Additional Codes GHASSAN-7 Assessment Billing - GHASSAN-7 Assessment Tool: GHASSAN-7 Assessment 08244 ([id number])
[2023-07-22 09:22] VITALS: BP 138/88; PULSE 78; O2SAT 98; BMI 39.6
== END 2023-07-22 13:23 | disposition home or self-care (01) ==
PROVIDERS: PCP Nurse Practitioner Family; Visit Provider Nurse Practitioner Family
DX: E11.9 Type 2 diabetes mellitus without complications (principal)
CPT/HCPCS: 83036; 99213

== ENCOUNTER 2023-08-06 06:12 | Outpatient (REF) | payer OTHER, SELFPAY ==
[2023-08-06 11:34] LABS: Appearance Urine Clear; Color Urine Yellow; Glucose Urine UA Negative (Negative); Leukocyte Esterase Urine Negative (Negative); Nitrite Urine Negative (Negative); PH 5.5 (5.0-9.0); Specific Gravity - Urine 1.015 (1.005-1.025); Urine Blood Negative (Negative); Urine Ketones Negative (Negative); Urine Protein Negative (Neg-Trace)
[2023-08-06 11:40] LABS: MANUAL DIFF FLAG NO
[2023-08-06 11:47] LABS: Basophils Percent Auto 0.6 % (0-2); Eosinophils Absolute Auto 0.2 X10*3/uL (0.0-0.4); Eosinophils Percent Auto 3.6 % (0-4); Hematocrit 45.9 % (42.0-52.0); Hemoglobin 15.3 g/dl (14.0-18.0); Imm Gran Abs Auto 0.03 X10*3/uL (0.00-0.03); Imm Gran Pct Auto 0.5 % (0.0-0.4); Lymphocytes Absolute Auto 2.3 X10*3/uL (1.2-4.9); Lymphocytes Percent Auto 37.1 % (20-40); Mean Corpuscular HGB Conc 33.3 g/dl (31.0-36.0); Mean Platelet Volume 9.5 fL (9.4-12.4); Monocytes Absolute Auto 0.4 X10*3/uL (0.1-1.2); Monocytes Percent Auto 6.6 % (2-11); Neutrophils Absolute Auto 3.2 x10*3/uL (2.0-8.3); Neutrophils Percent Auto 51.6 % (45-73); Platelet Count 292 X10*3/uL (160-400); Red Cell Distribution Width 12.9 % (11.0-16.0); White Blood Count 6.2 X10*3/uL (4.8-10.8)
[2023-08-06 12:12] LABS: Alanine Aminotransferase 40 U/L (0-40); Albumin Level 4.3 g/dL (3.5-5.0); Alkaline Phosphatase 69 U/L (39-117); Anion Gap 12 (12-20); Aspartate Amino Transferase 26 U/L (5-37); Bilirubin Total 0.8 mg/dL (0.0-1.0); Blood Urea Nitrogen 12 mg/dL (9-16); Calcium 9.6 mg/dL (8.4-10.2); Carbon Dioxide 26 mmol/L (22-29); Chloride 105 mmol/L (96-108); Cholesterol 149 mg/dL (<200); Estimated Glomerular Filt Rate > 60; Glucose Fasting 140 mg/dL (60-99); HDL Cholesterol 37 mg/dL (>40); LDL Cholesterol Calculated 73 mg/dL (<100); Potassium 4.1 mmol/L (3.3-5.1); Sodium 139 mmol/L (135-145); Total Protein 7.1 g/dL (6.5-8.0); Triglycerides 198 mg/dL (<150)
[2023-08-06 12:32] LABS: TSH reflex Free T4 1.78 uIU/mL (0.32-4.0)
== END 2023-08-06 06:13 | disposition home or self-care (01) ==
LOC: HO.HMGCLDS 06:12
PROVIDERS: PCP Nurse Practitioner Family; Visit Provider Nurse Practitioner Family
DX: E11.9 Type 2 diabetes mellitus without complications (principal)
CPT/HCPCS: 36415; 80053; 80061; 81003; 84443; 85025

== ENCOUNTER 2023-08-18 07:10 | Outpatient (AMB) | payer OTHER, SELFPAY ==
--- NOTE | 2023-08-18 07:17 | MHC.PC.OV ---
Intake Visit Reasons: Follow up labs Allergies Antihistamines Adverse Reaction (Intermediate, Uncoded 07/22/23 09:22) Rash Medication List - Last Reconciled 08/18/23 by SILVIA Rosenthal atorvastatin 20 mg PO BEDTIME blood sugar diagnostic (OneTouch Ultra Test strips) Test blood sugar once a day blood-glucose meter (OneTouch Ultra2 Meter) Test blood sugar once a day lancets (OneTouch Delica Plus Lancet) Test blood sugar once a day omega-3 acid ethyl esters 2 caps PO BID 90 days Tobacco use date assessed: 07/22/23 Dental Screening Dental Screen Date: 07/22/23 HPI Follow up labs HPI Details Dyslipidemia: Pt is currently taking atorvastatin 20mg. He reports recently being out of this medication for approximately 1 month. He had been back on this med for 1 month at the time of his labs. Will continue current dose. Denies fever, chills, and dizziness. WIll recheck lipids this Fall [facility] Medical History Seborrheic dermatitis Fatty liver Back pain Sciatica Elevated cholesterol Surgical History H/O colonoscopy No pertinent past surgical history Social History Housing: House Alcohol intake: current Patient Tobacco Use Status: Never used Tobacco e-Cigarette/Vaping Use: Never Used Current occupational status: employed Cognitive needs: No Hearing needs: No Vision needs: No Questionnaire Thrive Questionnaire Date Thrive assessed: 07/22/23 GHASSAN-7 AMB Questionnaire GHASSAN-7 Date GHASSAN - 7 assessed: 07/22/23 Source: Developed by Drs. Scott Avendano, Dayanna Bolanos, Eamon Guajardo and colleagues, with an educational jazz from [employer]. Review of Systems Const Reports as per HPI Physical exam (Primary Care) Tobacco/Smoking Status: Tobacco use Status Tobacco use date assessed 07/22/23 08/18/23 07:21 Patient Tobacco Use Status Never used Tobacco 08/18/23 07:21 e-Cigarette/Vaping Use Never Used 08/18/23 07:21 Thrive Assessment: Date of Thrive Assessment Date Thrive assessed 07/22/23 08/18/23 07:21 Const General: cooperative Orientation/consciousness: patient oriented x3 Neuro General: patient oriented x3 Psych Appearance: grossly normal Mental Status: mental status grossly normal Speech and movement: Clear speech present Affect: normal affect Attitude: cooperative Thought process: Normal thought process present Thought content: Normal thought content present Insight: Good insight present (Psych) Judgement: Good judgement present (Psych) Telehealth Telehealth Telehealth Platform: PushPage Location of provider rendering services: practice address Location of patient: address on file Patient Identification confirmed using: Name, : Yes Telehealth method: video Patient verbally consented to treatment: Yes Patient verbally consented to billing insurance company: Yes Patient informed of any privacy concerns related to visit: Yes Minutes spent on Phone/Video with Pt.: 10 Assessment and Plan Assessment & Plan (1) Dyslipidemia: Code(s): E78.5 - Hyperlipidemia, unspecified Plan: repeat lipids this fall (will see pt in office) Plan The patient agreed to the use of a medical billing coordinator for this encounter. Scribed for ZAK Jules-YUNI by Karis Diego medical billing coordinator, on 08/18/2023 at 07:20 EST. Coding Level of Care Code Tele Est Pt Level 3 (55932) Diagnoses Dyslipidemia E78.5
== END 2023-08-18 08:47 | disposition home or self-care (01) ==
LOC: HO.HMGC 07:10
PROVIDERS: PCP Nurse Practitioner Family; Visit Provider Nurse Practitioner Family
DX: E78.5 Hyperlipidemia, unspecified (principal)
CPT/HCPCS: 99213

== ENCOUNTER 2023-09-30 09:12 | Outpatient (AMB) | payer OTHER, SELFPAY ==
--- NOTE | 2023-09-30 07:52 | A.OFFPC_ITS ---
Intake Visit Reasons: Discuss medical concerns-Android Allergies Antihistamines Adverse Reaction (Intermediate, Uncoded 07/22/23 09:22) Rash Tobacco use date assessed: 07/22/23 Dental Screening Dental Screen Date: 07/22/23 HPI Discuss medical concerns-Android HPI Details Pt c/o increased anxiety/depression. Pt was recently involved in a situation at work where he was terminated. He is currently fighting this and has an upcoming court date. Pt is very stressed due to this. He does not want a therapist currently/meds. Denies any SI and HI. PFSH Medical History Seborrheic dermatitis Fatty liver Back pain Sciatica Elevated cholesterol Surgical History H/O colonoscopy No pertinent past surgical history Social History Housing: House Alcohol intake: current Patient Tobacco Use Status: Never used Tobacco e-Cigarette/Vaping Use: Never Used Current occupational status: employed Cognitive needs: No Hearing needs: No Vision needs: No Questionnaire Thrive Questionnaire Date Thrive assessed: 07/22/23 GHASSAN-7 AMB Questionnaire GHASSAN-7 Date GHASSAN - 7 assessed: 07/22/23 Source: Developed by Drs. Scott Avendano, Dayanna Bolanos, Eamon Guajardo and colleagues, with an educational jazz from [employer]. Review of Systems Const Reports as per HPI Physical exam (Primary Care) Tobacco/Smoking Status: Tobacco use Status Tobacco use date assessed 07/22/23 09/30/23 07:53 Patient Tobacco Use Status Never used Tobacco 09/30/23 07:53 e-Cigarette/Vaping Use Never Used 09/30/23 07:53 Thrive Assessment: Date of Thrive Assessment Date Thrive assessed 07/22/23 09/30/23 07:53 Const General: cooperative Orientation/consciousness: patient oriented x3 Neuro General: patient oriented x3 Psych Appearance: grossly normal Mental Status: mental status grossly normal Speech and movement: Clear speech present Affect: normal affect Attitude: cooperative Thought process: Normal thought process present Thought content: Normal thought content present Insight: Good insight present (Psych) Judgement: Good judgement present (Psych) Telehealth Telehealth Telehealth [facility] Location of provider rendering services: practice address Location of patient: address on file Patient Identification confirmed using: Name, : Yes Telehealth method: video Patient verbally consented to treatment: Yes Patient verbally consented to billing insurance company: Yes Patient informed of any privacy concerns related to visit: Yes Minutes spent on Phone/Video with Pt.: 10 Assessment and Plan Assessment & Plan (1) Anxiety and depression: Code(s): F41.9 - Anxiety disorder, unspecified; F32.A - Depression, unspecified Plan: Will continue to monitor, denies any SI and HI, does not want a therapist/med currently. 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 Scribed for ZAK Jules-YUNI by Karis Diego medical stenographer, on 09/30/2023 at 07:50 EST. Coding Level of Care Code Tele Est Pt Level 3 (95428) Diagnoses Anxiety and depression F41.9; F32.A
== END 2023-09-30 09:25 | disposition home or self-care (01) ==
LOC: HO.HMGC 09:12
PROVIDERS: PCP Nurse Practitioner Family; Visit Provider Nurse Practitioner Family
DX: F41.9 Anxiety disorder, unspecified (principal); F32.A Depression, unspecified
CPT/HCPCS: 99213

== ENCOUNTER 2023-11-19 14:57 | Outpatient (AMB) | payer OTHER, SELFPAY ==
[2023-11-19 14:56] VITALS: BP 136/78; PULSE 78; O2SAT 98; BMI 39.9
--- NOTE | 2023-11-19 14:56 | MHC.PC.OV ---
Vital Signs 11/19/23 14:56 Height 5 ft 9 in Weight 270 lb BMI 39.9 BP 136/78 Blood Pressure Location Rt brachial Position Sitting Pulse 78 Pulse Source Pulse Oximeter Pulse Oximetry (%) 98 Intake Visit Reasons: Annual PE/overdue Intake Note: pt is here for annual exam Student Finance Advisor Required: No Accompanied by: Self / Same As Patient Allergies Antihistamines Adverse Reaction (Intermediate, Uncoded 11/19/23 14:57) Rash Medication List - Last Reconciled 11/19/23 by SILVIA Rosenthal atorvastatin 20 mg PO BEDTIME blood sugar diagnostic ([employer] Ultra Test strips) Test blood sugar once a day blood-glucose meter ([employer] Ultra2 Meter) Test blood sugar once a day lancets ([employer] International[employer] Delica Plus Lancet) Test blood sugar once a day omega-3 acid ethyl esters 2 caps PO BID 90 days Tobacco use date assessed: 07/22/23 Dental Screening Dental Screen Date: 07/22/23 HPI Annual PE/overdue HPI Details Pt is a diabetic, on a statin. A1C in office today is 6.1. Due for microalbumin, will order. Denies polyuria, polydipsia, and neuropathy. Pt denies any signs and symptoms of hypoglycemia and does know how to correct it. Pt will schedule his own eye exam. Pt is currently grieving the loss of his son who committed suicide recently. Pt himself, denies any si or HI. Does not want a therapist currently. He will contact me with any questions or concerns [facility] Medical History Seborrheic dermatitis Fatty liver Back pain Sciatica Elevated cholesterol Surgical History H/O colonoscopy No pertinent past surgical history Social History Housing: House Alcohol intake: current Patient Tobacco Use Status: Never used Tobacco e-Cigarette/Vaping Use: Never Used Current occupational status: employed Cognitive needs: No Hearing needs: No Vision needs: No Questionnaire PHQ-9 Over the last 2 weeks, how often have you been bothered by any of the following problems? 52747 - PHQ-9 Billing: Patient declined-do not bill Source: Developed by Drs. Scott Avendano, Dayanna Bolanos, Eamon Guajardo and colleagues, with an educational jazz from [employer]. Thrive Questionnaire Date Thrive assessed: 07/22/23 GHASSAN-7 AMB Questionnaire GHASSAN-7 Date GHASSAN - 7 assessed: 07/22/23 Source: Developed by Dayanna White, Eamon Guajardo and colleagues, with an educational jazz from [employer]. GHASSAN-7 Assessment Billing GHASSAN-7 Assessment Tool: pt declined-do not bill Review of Systems Const Reports as per HPI Physical exam (Primary Care) Vital Signs: Last Vital Signs Pulse 78 11/19/23 14:56 BP 136/78 11/19/23 14:56 Pulse Ox 98 11/19/23 14:56 BMI result Body Mass Index 39.9 Tobacco/Smoking Status: Tobacco use Status Tobacco use date assessed 07/22/23 11/19/23 14:57 Patient Tobacco Use Status Never used Tobacco 11/19/23 14:57 e-Cigarette/Vaping Use Never Used 11/19/23 14:57 Thrive Assessment: Date of Thrive Assessment Date Thrive assessed 07/22/23 11/19/23 14:57 Const General: cooperative Nutritional Appearance: obese Orientation/consciousness: patient oriented x3 Resp Effort & Inspection: normal respiratory effort Auscultation: clear to auscultation bilaterally Cardio Rate: regular rate Rhythm: regular rhythm Heart sounds: S1 normal heart sound present, S2 normal heart sound present and no murmurs Neuro General: patient oriented x3 Extrem Other: bilat feet: + sensation with use of monofilament, feet intact Psych Appearance: grossly normal Mental Status: mental status grossly normal Speech and movement: Normal speech and movement present Affect: normal affect Attitude: cooperative Thought process: Normal thought process present Thought content: Normal thought content present Insight: Good insight present (Psych) Judgement: Good judgement present (Psych) Results AMB Hemoglobin A1c AMB Hemoglobin A1c 6.1 % Last Edit by Joe Alfaro CMA on 11/19/23 15:40 Results Reviewed Results Reviewed: Laboratory Last Values Hgb A1c (Clinic) 6.1 % (4.0-6.0) H 11/19/23 15:40 Coding Level of Care Code Est Pt Level 3 (78067) Diagnoses Diabetes E11.9 Screening PSA (prostate specific antigen) Z12.5 Assessment & Plan Assessment & Plan (1) Diabetes: Code(s): E11.9 - Type 2 diabetes mellitus without complications Category: Medical Plan: Labs ordered (2) Screening PSA (prostate specific antigen): Code(s): Z12.5 - Encounter for screening for malignant neoplasm of prostate Category: Medical Plan: PSA ordered Plan The patient agreed to the use of a medical records assistant for this encounter. Scribed for ZAK Jules-YUNI by tessie Han scribe, on 11/19/2023 at 15:10 EST. Orders: Orders Complete Blood Count Auto Diff Today E11.9 - Type 2 diabetes mellitus without complications, Z00.00 - Encounter for general adult medical examination without abnormal findings TSH reflex Free T4 Today E11.9 - Type 2 diabetes mellitus without complications, Z00.00 - Encounter for general adult medical examination without abnormal findings UA CC w/rflx Micro + Cult Today E11.9 - Type 2 diabetes mellitus without complications, Z00.00 - Encounter for general adult medical examination without abnormal findings Microalbumin, Random (w Creat) Today E11.9 - Type 2 diabetes mellitus without complications, Z00.00 - Encounter for general adult medical examination without abnormal findings Comprehensive [place]. Panel Fast Today E11.9 - Type 2 diabetes mellitus without complications, Z00.00 - Encounter for general adult medical examination without abnormal findings Lipid Panel Today E11.9 - Type 2 diabetes mellitus without complications, Z00.00 - Encounter for general adult medical examination without abnormal findings Prostate Specific Antigen Scr Today Z12.5 - Encounter for screening for malignant neoplasm of prostate AMB Hemoglobin A1c Today E11.9 - Type 2 diabetes mellitus without complications
== END 2023-11-19 16:06 | disposition home or self-care (01) ==
PROVIDERS: PCP Nurse Practitioner Family; Visit Provider Nurse Practitioner Family
DX: E11.9 Type 2 diabetes mellitus without complications (principal); Z12.5 Encounter for screening for malignant neoplasm of prostate

== ENCOUNTER → 2023-11-19 14:57 | Outpatient (BNVA) | payer OTHER, SELFPAY | PROVIDERS: PCP Nurse Practitioner Family; Visit Provider Nurse Practitioner Family | DX: E11.9 Type 2 diabetes mellitus without complications (principal) | CPT/HCPCS: 83036; 99212 ==

== ENCOUNTER 2024-01-06 14:55 | Outpatient (AMB) | payer OTHER, SELFPAY ==
[2024-01-06 15:06] VITALS: BP 146/84; PULSE 70; O2SAT 96; BMI 40.3
--- NOTE | 2024-01-06 15:06 | A.OFFVIS_ITS ---
Vital Signs 01/06/24 15:06 Height 5 ft 9 in Weight 272 lb 14.916 oz BMI 40.3 BP 146/84 H Blood Pressure Location Lt brachial Position Sitting Pulse 70 Pulse Source Pulse Oximeter Pulse Oximetry (%) 96 Oxygen Delivery Method Room Air Intake Visit Reasons: pre colonoscopy Intake Note: Relevant Flags or Indicators ? Requires Credit Director? Maria Guadalupe Albrecht presents in office today for a scheduled colonoscopy consultation. CC; No recent labs, diagnostics, or med orders placed. ? Relevant GI Sx as reported per pt? None ? Hx of any recent surgeries? Previous colo w/ RM. x3 years ago (TA) Credit Director Required: No Allergies Antihistamines Adverse Reaction (Intermediate, Uncoded 11/19/23 14:57) Rash HPI HPI pre colonoscopy: Details: LAST VISIT POST COLONOSCOPY WITH FADY YULIET MANN 11/13/2020 Diagnosis A.? Cecum, polypectomy:? Tubular adenoma; no high grade dysplasia or carcinoma seen. B.? Colon, transverse, polypectomy:? Colonic mucosa with mild surface hyperplastic changes. C.? Colon, transverse at 100 cm, polypectomy:? Inflammatory polyp; no dysplasia seen. TODAY'S VISIT He tolerated the procedure well. In fact he found it easier than he thought it would be. I advised him of the results and he is quite agreeable to a 3 year follow-up. His bowels returned to normal shortly after the procedure and he has had no problems postoperatively. TODAY'S VISIT Patient is here today for follow-up and to discuss colonoscopy. Patient denies any issues with anesthesia in the past. No history of sleep apnea. Not on any anticoagulation medication. Tubular adenoma found and was recommended to repeat colonoscopy in 3 years. Patient denies any melena, hematochezia, unintentional weight loss or ribbon like stools. Patient denies any GI concerning symptoms. Denies any cardiac or respiratory symptoms. [facility] Medical History (Updated 01/06/24 @ 15:13 by PATRICIA Rodriguez) Rotator cuff rupture (~08/2022) Seborrheic dermatitis Fatty liver Back pain Sciatica Elevated cholesterol Surgical History H/O colonoscopy No pertinent past surgical history Social History Housing: House Alcohol intake: current Patient Tobacco Use Status: Never used Tobacco e-Cigarette/Vaping Use: Never Used Current occupational status: employed Cognitive needs: No Hearing needs: No Vision needs: No Physical Exam Vital Signs: Last Vital Signs Pulse 70 01/06/24 15:06 BP 146/84 H 01/06/24 15:06 Pulse Ox 96 01/06/24 15:06 Oxygen Delivery Method Room Air 01/06/24 15:06 BMI result Body Mass Index 40.3 Assessment & Plan Assessment & Plan (1) Tubular adenoma of colon: Comment: 2020 10 mm pendunculated TA, repeat in 3 years Code(s): D12.6 - Benign neoplasm of colon, unspecified Category: Medical (2) Screening for colon cancer: Code(s): Z12.11 - Encounter for screening for malignant neoplasm of colon Category: Medical Plan What to expect before during and after procedure discussed with patient. Patient had no issues with anesthesia in the past. As mentioned above in HPI tubular adenoma found on colonoscopy recommendation was made for 3 year screening. Patient is not on any anticoagulation medication. No history of sleep apnea. Denies any cardiac or respiratory symptoms. Denies any other GI concerning symptoms. What to expect before during and after procedure discussed with patient. Stressed the importance of good bowel prep and clear liquid diet day before the procedure. Patient will follow-up after the procedure. Medications: New polyethylene glycol 3350 (Miralax) As directed by gastroenterology department at [facility] 238 grams PO ONCE 238 grams 0RF Z12.11 - Encounter for screening for malignant neoplasm of colon bisacodyl (Dulcolax (bisacodyl)) take 4 tabs at noon the day before your colonoscopy 20 mg (4 x 5 mg) PO ONCE 1 day 4 tabs 0RF Z12.11 - Encounter for screening for malignant neoplasm of colon Coding Level of Care Code New Pt Level 3 (04303) Diagnoses Tubular adenoma of colon D12.6 Screening for colon cancer Z12.11 Time Spent (min) 40 Comment 30 minutes spent with patient and additional 10 minutes spent reviewing his records
== END 2024-01-06 16:01 | disposition home or self-care (01) ==
PROVIDERS: PCP Nurse Practitioner Family; Visit Provider Nurse Practitioner Family
DX: D12.6 Benign neoplasm of colon, unspecified (principal); Z12.11 Encounter for screening for malignant neoplasm of colon
CPT/HCPCS: 99203

== ENCOUNTER → 2024-01-06 14:55 | Outpatient (BNVA) | payer OTHER, SELFPAY | PROVIDERS: PCP Nurse Practitioner Family; Visit Provider Nurse Practitioner Family | DX: Z12.11 Encounter for screening for malignant neoplasm of colon (principal); D12.6 Benign neoplasm of colon, unspecified | CPT/HCPCS: 99202 ==

== ENCOUNTER 2024-05-16 08:13 | Day surgery (SDC) | payer BC, SELFPAY ==
[2024-05-12 09:20] VITALS: BMI 40.2
--- NOTE | 2024-05-13 09:51 | HO.ANESPROP2 ---
Documented by User: Alicia Burdick NP 05/13/24 09:53 HPI - Anesthesia Eval Consult details Narrative: 58yo M for Colonoscopy PMFSH Active Problems Active Problems: All Active Problems Physical exam (Acute) Anxiety and depression (Acute) Hordeolum externum left lower eyelid (Acute) Skin lesion (Acute) Diabetes (Acute) Hyperkalemia (Acute) Elevated liver enzymes (Acute) Microscopic hematuria (Acute) Dyslipidemia (Acute) Screening PSA (prostate specific antigen) (Acute) HTN (hypertension) (Acute) Tubular adenoma of colon (Acute) Screening for colon cancer (Acute) Past Medical History Medical History Rotator cuff rupture (~08/2022) Seborrheic dermatitis Fatty liver Back pain Sciatica Elevated cholesterol Family History Family history of problems with anesthesia: No Surgical History Surgical History H/O colonoscopy No pertinent past surgical history History of Problems with Anesthesia: No Social History Social History Housing: House Alcohol intake: current Patient Tobacco Use Status: Never used Tobacco e-Cigarette/Vaping Use: Never Used Use of substances other than those prescribed or required for medical reasons: No Are you DNR?: No Advance Directives: No Advance Directives Information Provided: Yes Current occupational status: employed Cognitive needs: No Hearing needs: No Vision needs: No Meds Allergies Allergy/AdvReac Type Severity Reaction Status Date / Time Antihistamines AdvReac Intermediate Rash Uncoded 05/16/24 08:25 Exam Height,Weight and Vital Signs: Height 5 ft 9 in Weight 123.377 kg Assessment and Plan Assessment Anesthesia Assessment: Chart Reviewed Final Anesthetic Review Family History of Problems with Anesthesia: No History of Problems with Anesthesia: No Documented by User: Ynes Spann MD 05/16/24 09:54 PMFSH Past Medical History Medical History Rotator cuff rupture (~08/2022) Seborrheic dermatitis Fatty liver Back pain Sciatica Elevated cholesterol Surgical History Surgical History H/O colonoscopy No pertinent past surgical history Social History Social History Housing: House Alcohol intake: current Patient Tobacco Use Status: Never used Tobacco e-Cigarette/Vaping Use: Never Used Use of substances other than those prescribed or required for medical reasons: No Are you DNR?: No Advance Directives: No Advance Directives Information Provided: Yes Current occupational status: employed Cognitive needs: No Hearing needs: No Vision needs: No Meds Allergies Allergy/AdvReac Type Severity Reaction Status Date / Time Antihistamines AdvReac Intermediate Rash Uncoded 05/16/24 08:25 Exam Airway Mallampati Class: III TM Dist: >3cm Neck ROM: Full Loose/Missing/Broken Teeth: No Heart: RRR Lungs: CTA Assessment and Plan Assessment Anesthesia Assessment: Anesthesia Plan Discussed Final Anesthetic Review NPO: Yes ASA Class: III Final Preanesthetic Review: Meds/Allgs Chart Reviewed, Consent Obtained/Reviewed and Anes Risks/Benef Reviewed Patient Risk: Intermediate Procedure Risk: Low Anesthetic Plan Anesthetic Plan: MAC: Disposition: Standard PACU
--- NOTE | 2024-05-16 07:56 | MHC.SHP ---
Pre-Procedural Eval Section A - 24 Hr Update-Section A only Date of Service: 05/16/24 The patient is an INPATIENT: No The patient has been examined within 24 hours of the surgical procedure. The History & Physical has been completed within 30 days and I have reviewed it.: No Section B - Complete if H&P > 30 days Chief Complaint: Surveillance for colon polyps Relevant Family History (Specify if Yes): No Relevant Social History: None Present Medications: see Short Stay Collaborative assessment Medical History: Significant History (History of squamous cell carcinoma excision History of laparoscopic cholecystectomy History of History of colonoscopy) History of Previous Operations: Relevant previous surgery/procedure and date(s) (History of colonoscopy) Allergies: Allergies Allergy/AdvReac Type Severity Reaction Status Date / Time Antihistamines AdvReac Intermediate Rash Uncoded 11/19/23 14:57 Review of Systems Sugical H&P ROS: Negative: Constitution, Cardiovascular, Respiratory and Gastrointestinal Exam Surgical H&P Exam: Normal: Heart, Normal: Lungs, Normal: Extremities and Normal: Abdomen Plan Diagnosis/Plan: Unchanged I have reviewed the history and physical and performed a pertinent physical examination on my patient. No changes have occurred unless specified. Time Spent With Patient Time: Total time managing care of this patient today ____ minutes.
[2024-05-16 08:40] VITALS: BP 155/82; PULSE 58; RESP 14; TEMP 36.9; O2SAT 97; BMI 40.4
[2024-05-16] MEDS: Lactated Ringers 1,000 ML 100 ML IVCONT (09:12)
--- NOTE | 2024-05-16 10:21 | P.OPN-COLO_ITS ---
Colonoscopy Operative Note Operative Note Date of Service: 05/16/24 Narrative: COLONOSCOPY TILL CECUM WITH SNARE POLYPECTOMY Pre-op diagnosis: Surveillance of colon polyps. Post-op diagnosis:? Colon polyps, Diverticulosis, hemorrhoids Endoscopist:? Evita Mitchell MD Anesthesia:?MAC Consent: Indications for the procedure and potential complications of bleeding, perforation, reaction to medications and missed diagnosis were discussed with the patient and informed consent was obtained. Instrument: Olympus CF H 190 L variable stiffness adult colonoscope Monitoring: Vital signs and clinical assessment, intermittent blood pressure monitoring, continuous EKG monitoring, Pulse oximetry and Carbon Dioxide monitoring were done throughout the procedure. Please see anesthesia flowsheet. Colon withdrawl time was 18 minutes. Procedure: The patient was placed in the left lateral decubitis position and pre-procedure medications were administered. After a digital rectal examination of the ano-rectum, the video colonoscope was inserted into the rectum and advanced through the colon to the cecum. The colonoscope was slowly withdrawn in a retrograde panoramic fashion and the colon mucosa was carefully examined including a retroflexed view of the rectum. Findings and interventions are described below. Procedure Difficulty: without difficulty Findings: Terminal Ileum: Not evaluated Cecum: Not evaluated due to poor prep Ascending Colon: Partially evaluated due to poor prep Transverse Colon: Normal Descending Colon: Moderate diverticulosis Sigmoid Colon: A 4-5 mm sessile polyp - removed with a cold snare. Moderate diverticulosis Rectum: A 6-7 mm sessile polyp - removed with a cold snare. Ano-rectum: Moderate internal hemorrhoids Colon preparation: Good in the left and transverse colon and Poor in the right colon despite copious irrigation. [place] Bowel Preparation Scale Right colon; 1 Transverse colon: 2 Left colon; 2 (0 = Unprepared colon segment with mucosa not seen due to solid stool that cannot be cleared. 1 = Portion of mucosa of the colon segment seen, but other areas of the colon segment not well seen due to staining, residual stool and/or opaque liquid. 2 = Minor amount of residual staining, small fragments of stool and/or opaque liquid, but mucosa of colon segment seen well. 3 = Entire mucosa of colon segment seen well with no residual staining, small fragments of stool or opaque liquid) Impression and Post Procedure Diagnosis: Colonoscopy Findings: Two small polyps were removed Moderate diverticulosis seen in the left colon Moderate hemorrhoids on antegrade exam. Plan: I will send a letter with biopsy results Repeat Colonoscopy in 1-2 years if polyps are adenomatous and due to suboptimal prep in the right colon Above findings were reviewed with the patient and relevant handouts were given in the discharge area.
[2024-05-16 10:25] VITALS: BP 111/47; PULSE 68; RESP 18; TEMP 36.2; O2SAT 96
[2024-05-16 10:40] VITALS: BP 142/84; PULSE 57; RESP 16; O2SAT 98
[2024-05-16 10:55] VITALS: BP 154/96; PULSE 54; RESP 18; TEMP 36.3; O2SAT 98
[2024-05-16 11:04] VITALS: BP 127/68
== END 2024-05-16 11:18 | disposition home or self-care (01) ==
PROVIDERS: PCP Nurse Practitioner Family; Visit Provider Internal Medicine Gastroenterology
PROC: 0DJD8ZZ Inspection of Lower Intestinal Tract, Via Natural or Artificial Opening Endoscopic (ICD-10-PCS; CPT 45378; principal; 2024-05-16 09:20)
DX: Z12.11 Encounter for screening for malignant neoplasm of colon (principal); Z86.0101 Personal history of adenomatous and serrated colon polyps; D12.5 Benign neoplasm of sigmoid colon; K62.1 Rectal polyp; K57.30 Diverticulosis of large intestine without perforation or abscess without bleeding; K64.8 Other hemorrhoids; K76.0 Fatty (change of) liver, not elsewhere classified; E78.00 Pure hypercholesterolemia, unspecified; Z88.8 Allergy status to other drugs, medicaments and biological substances
CPT/HCPCS: 45385; 88305; J2003; J2250; J2704

== ENCOUNTER → 2024-05-16 08:13 | Outpatient (BNV) | payer BC, SELFPAY | PROVIDERS: PCP Nurse Practitioner Family; Visit Provider Internal Medicine Gastroenterology | DX: Z12.11 Encounter for screening for malignant neoplasm of colon (principal); Z86.0100 Personal history of colon polyps, unspecified; D12.5 Benign neoplasm of sigmoid colon; K62.1 Rectal polyp | CPT/HCPCS: 45385 ==

== ENCOUNTER 2024-05-19 14:51 | Outpatient (AMB) | payer BC, SELFPAY ==
--- NOTE | 2024-05-19 14:55 | A.OFFPC_ITS ---
Vital Signs 05/19/24 14:56 Height 5 ft 9 in Weight 273 lb BMI 40.3 BP 132/80 Blood Pressure Location Lt brachial Position Sitting Pulse 63 Pulse Source Pulse Oximeter Pulse Oximetry (%) 97 Oxygen Delivery Method Room Air Intake Visit Reasons: 6m follow up Accompanied by: Self / Same As Patient Allergies Antihistamines Adverse Reaction (Intermediate, Uncoded 05/19/24 15:16) Rash Medication List - Last Reconciled 05/19/24 by HEIDI Rosenthal atorvastatin 20 mg PO BEDTIME blood sugar diagnostic (OneTouch Ultra Test strips) Test blood sugar once a day blood-glucose meter (OneTouch Ultra2 Meter) Test blood sugar once a day lancets (OneTouch Delica Plus Lancet) Test blood sugar once a day omega-3 acid ethyl esters 2 caps PO BID 90 days Tobacco use date assessed: 05/19/24 Dental Screening Dental Screen Date: 05/19/24 Did you have a dental visit in the last 12 months?: Yes Did you have a dental problem in the last 6 months where you did not have access to dental care?: No Was dental information given to patient?: Patient has dentist HPI 6m follow up HPI Details Chief Complaint Follow-up for diabetes management. History of Present Illness The patient is a 58-year-old male presenting with a follow-up for diabetes management. He reports stable blood glucose control, as indicated by a recent h emoglobin A1c level of 6.0%. He denies any neuropathy, polyuria, or polydipsia, which are commonly associated symptoms of diabetes. No other diabetes-related complications have been reported since the last consultation. His current regimen continues to maintain his glycemic levels within the target range with excellent results. An eye examination has been completed and is up to date, essential for monitoring potential retinopathy. Furthermore, he has completed a colon screening, with a recommendation for routine follow-up in one to two years based on favorable results. Overall, his management plan appears effective. Social History - Exercise and functional status not dis cussed. - Dietary habits and nutritional intake not discussed. - Weight management discussed with refer ence to obesity. - No information on substance use or soc ioeconomic factors provided. Health Maintenance - Hemoglobin A1c is 6.0%, suggesting exc ellent glycemic control. - Eye examination is up to date for reti nopathy screening. - Colon screening was conducted this thu with favorable results; next screening in one to two years. Review of Systems - Cardiovascular: Denies palpitations or any chest discomfort. - Endocrine: Denies polyuria, polydipsia , or neuropathy. Physical Exam General: Cooperative, healthy appearing, comfortable, no acute distress and well developed, obese Orientation: Patient oriented x3 Limitations: No limitations Head: Normal to inspection Ears: Hearing grossly normal bilaterally Nose: Normal external nose present Face and sinus: Normal facial exam Eyes: Appearance normal, both eyes and all related structures, eye exam is up to date Neck: Normal visual inspection and Yes full ROM Respiratory: Normal respiratory effort and able to speak in complete sentences. Clear to auscultation bilaterally Cardiovascular: Regular rate and rhythm. Normal S1 and S2, very faint systolic murmur GI: Normal to inspection. Soft to palpation and nontender Skin: No rashes or lesions noted Neuro: Patient oriented x3 Extremities: Normal to inspection, feet were intact bilaterally, monofilament test felt bilaterally Results - Tests: Recent colonoscopy indicated a poor clean out, necessitating follow-up in one to two years. Plan 1. 0%. No changes to his medication or t reatment plan are necessary given his stable glycemic control. He does not report symptoms such as neuropathy or polyuria, indicating effective management of the condition. Eye exams remain current. Colonoscopy results are satisfactory, with a planned follow-up in one to two years.: Discussion Notes I discussed the examination and treatment of diabetes with him and am encouraged by his control, as evidenced by an A1c of 6.0%. I confirmed that his blood glucose management strategy remains effective and emphasized the importance of continued adherence to prescribed regimens. We talked about the need to keep monitoring for new symptoms and any signs of complications like neuropathy or retinopathy. We also reviewed the results of his recent colonoscopy, noting the recommendation for follow-up screening in one to two years, aligning with current health guidelines. We agreed to maintain regular follow-ups to ensure ongoing management success. Patient Instructions - Continue current diabetes management p alem. - Ensure regular monitoring of blood glu cose levels. - Schedule follow-up eye exams as recomm ended. - Follow up for colonoscopy in one to tw o years as advised. - Report any new symptoms or concerns im mediately. [facility] Medical History Rotator cuff rupture (~08/2022) Seborrheic dermatitis Fatty liver Back pain Sciatica Elevated cholesterol Surgical History H/O colonoscopy No pertinent past surgical history Social History Housing: House Alcohol intake: current Patient Tobacco Use Status: Never used Tobacco e-Cigarette/Vaping Use: Never Used Current occupational status: employed Cognitive needs: No Hearing needs: No Vision needs: No Questionnaire PHQ-9 Over the last 2 weeks, how often have you been bothered by any of the following problems? 1. Little interest or pleasure in doing things: not at all 2. Feeling down, depressed, or hopeless: not at all 3. Trouble falling or staying asleep, or sleeping too much: several days 4. Feeling tired or having little energy: not at all 5. Poor appetite or overeating: more than half the days 6. Feeling bad about yourself - or that you are a failure or have let yourself or your family down: not at all 7. Trouble concentrating on things, such as reading the newspaper or watching te levision: not at all 8. Moving or speaking so slowly that other people could have noticed. Or the opposite - being so fidgety or restless that you have been moving around a lot more than usual: not at all 9. Thoughts that you would be better off or of hurting yourself in some way: not at all Total score: 3 Depression Screening Interpretation: Negative Depression Screening Done: Yes 78576 - PHQ-9 Billing: Yes Source: Developed by Drs. Scott Avendano, Dayanna Bolanos, Eamon Guajardo and colleagues, with an educational jazz from [employer]. Thrive Questionnaire Date Thrive assessed: 05/19/24 I am a: Patient What is your living situation today?: I have a steady place to live Within the past 12 months, did the food you bought not last and you didn't have the money to get more?: Never true Within the past 12 months, did you worry whether your food would run out before you got money to buy more?: Never true Do you have trouble paying for medicines?: No Do you have trouble getting transportation to medical appointments?: No Do you have trouble paying your heating and electricity bill?: No Do you have trouble taking care of your child, family member or friend?: No Do you have trouble with day-to-day activities such as bathing, preparing meals, shopping, managing finances, etc.?: No Are you currently unemployed and looking for a job?: No Are you interested in more education?: No Please select the resources that you would like help with: None Currently or been in a relationship where the following occur: No concerns reported THRIVE Score: 0 AUDIT C Alcohol Use Questionnaire (AUDIT-C) 1. How often do you have a drink containing alcohol?: 2-4 times a month 2. How many drinks containing alcohol do you have on a typical day when you are drinking?: 10 or more 3. How often do you have six or more drinks on one occasion?: Weekly Total Score: 9 Score Reviewed/Action Taken: Yes (denies any SI or HI, declines therapist) GHASSAN-7 AMB Questionnaire GHASSAN-7 Date GHASSAN - 7 assessed: 05/19/24 Feeling nervous, anxious, or on edge: 0 = Not at all Not being able to stop or control worryin = Not at all Worrying too much about different things: 0 = Not at all Trouble relaxin = Not at all Being so restless that it is hard to sit still: 0 = Not at all Becoming easily annoyed or irritable: 0 = Not at all Feeling afraid as if something awful might happen: 0 = Not at all Total GHASSAN-7 score (0-4 normal; 5-9 mild; 10-14 moderate; 15-21 severe): 0 Source: Developed by Drs. Scott Avendano, Dayanna Bolanos, Eamon Guajardo and colleagues, with an educational jazz from [employer]. GHASSAN-7 Assessment Billing GHASSAN-7 Assessment Tool: GHASSAN-7 Assessment 10057 Physical exam (Primary Care) Vital Signs: Last Vital Signs Pulse 63 05/19/24 14:56 BP 132/80 05/19/24 14:56 Pulse Ox 97 05/19/24 14:56 Oxygen Delivery Method Room Air 05/19/24 14:56 BMI result Body Mass Index 40.3 Tobacco/Smoking Status: Tobacco use Status Tobacco use date assessed 05/19/24 05/19/24 14:58 Patient Tobacco Use Status Never used Tobacco 05/19/24 14:58 e-Cigarette/Vaping Use Never Used 05/19/24 14:58 PHQ-9: PHQ-9 Score PHQ-9: Total score 3 05/19/24 14:58 Depression Screening Interpretation: Negative Thrive Assessment: Date of Thrive Assessment Date Thrive assessed 05/19/24 05/19/24 14:58 Currently or been in a relationship where the following occur: No concerns reported Results AMB Hemoglobin A1c AMB Hemoglobin A1c 6.1 % Last Edit by Joe Alfaro CMA on 05/19/24 15: 21 Coding Level of Care Code Est Pt Level 3 (78377) Diagnoses Diabetes E11.9 Additional Codes GHASSAN-7 Assessment Billing - GHASSAN-7 Assessment Tool: GHASSAN-7 Assessment 25064 ([id number]) PHQ-9 - 51520 - PHQ-9 Billing: Yes ([id number]) Assessment & Plan Assessment & Plan (1) Diabetes: Code(s): E11.9 - Type 2 diabetes mellitus without complications Category: Medical Plan . Orders: Orders AMB Hemoglobin A1c Today Z13.9 - Encounter for screening, unspecified
[2024-05-19 14:56] VITALS: BP 132/80; PULSE 63; O2SAT 97; BMI 40.3
== END 2024-05-19 16:53 | disposition home or self-care (01) ==
PROVIDERS: PCP Nurse Practitioner Family; Visit Provider Nurse Practitioner Family
DX: E11.9 Type 2 diabetes mellitus without complications (principal); Z13.9 Encounter for screening, unspecified

== ENCOUNTER → 2024-05-19 14:51 | Outpatient (BNVA) | payer BC, SELFPAY | PROVIDERS: PCP Nurse Practitioner Family; Visit Provider Nurse Practitioner Family | DX: E11.9 Type 2 diabetes mellitus without complications (principal) | CPT/HCPCS: 83036; 96127 ==

== ENCOUNTER 2024-06-03 06:01 | Outpatient (REF) | payer BC, SELFPAY ==
[2024-06-03 10:03] LABS: MANUAL DIFF FLAG NO
[2024-06-03 10:13] LABS: Basophils Absolute Auto 0.1 X10*3/uL (0.0-0.2); Basophils Percent Auto 0.8 % (0-2); Eosinophils Absolute Auto 0.2 X10*3/uL (0.0-0.4); Eosinophils Percent Auto 2.6 % (0-4); Hematocrit 46.8 % (42.0-52.0); Hemoglobin 15.9 g/dl (14.0-18.0); Imm Gran Abs Auto 0.01 X10*3/uL (0.00-0.03); Imm Gran Pct Auto 0.2 % (0.0-0.4); Lymphocytes Absolute Auto 2.3 X10*3/uL (1.2-4.9); Lymphocytes Percent Auto 36.5 % (20-40); Mean Corpuscular Hemoglobin 29.7 pg (27.0-33.0); Mean Corpuscular Volume 87.3 fL (80.0-98.0); Mean Platelet Volume 9.5 fL (9.4-12.4); Monocytes Absolute Auto 0.5 X10*3/uL (0.1-1.2); Monocytes Percent Auto 7.8 % (2-11); Neutrophils Absolute Auto 3.2 x10*3/uL (2.0-8.3); Neutrophils Percent Auto 52.1 % (45-73); Platelet Count 307 X10*3/uL (160-400); Red Blood Count 5.36 X10*6/uL (4.60-5.80); Red Cell Distribution Width 12.3 % (11.0-16.0); White Blood Count 6.2 X10*3/uL (4.8-10.8)
[2024-06-03 10:41] LABS: Alanine Aminotransferase 42 U/L (0-40); Albumin Level 4.6 g/dL (3.5-5.0); Alkaline Phosphatase 57 U/L (39-117); Anion Gap 11 (12-20); Aspartate Amino Transferase 34 U/L (5-37); Bilirubin Total 1.1 mg/dL (0.0-1.0); Blood Urea Nitrogen 20 mg/dL (9-16); Carbon Dioxide 27 mmol/L (22-29); Chloride 104 mmol/L (96-108); Cholesterol 147 mg/dL (<200); Estimated Glomerular Filt Rate > 60; Glucose Fasting 127 mg/dL (60-99); HDL Cholesterol 35 mg/dL (>40); LDL Cholesterol Calculated 78 mg/dL (<100); Potassium 4.2 mmol/L (3.3-5.1); Sodium 138 mmol/L (135-145); TSH reflex Free T4 2.17 uIU/mL (0.32-4.0); Total Protein 7.4 g/dL (6.5-8.0); Triglycerides 170 mg/dL (<150)
[2024-06-03 10:51] LABS: Prostate Specific Antigen Scr 0.84 ng/mL (<0.05-4.0)
[2024-06-03 10:53] LABS: Creatinine Urine 244.67 mg/dL; Microalbum/Creatinine Ratio Ur 3.6 ug/mg cr (<30)
[2024-06-03 10:56] LABS: Appearance Urine Turbid; Color Urine Yellow; Glucose Urine UA Negative (Negative); Leukocyte Esterase Urine Negative (Negative); Nitrite Urine Negative (Negative); PH 5.5 (5.0-9.0); Specific Gravity - Urine 1.025 (1.005-1.025); Urine Blood Negative (Negative); Urine Ketones Trace mg/dL (Negative); Urine Protein Negative (Neg-Trace)
== END 2024-06-03 06:02 | disposition home or self-care (01) ==
LOC: HO.HMGCLDS 06:01
PROVIDERS: PCP Nurse Practitioner Family; Visit Provider Nurse Practitioner Family
DX: Z00.00 Encounter for general adult medical examination without abnormal findings (principal); E11.9 Type 2 diabetes mellitus without complications; Z12.5 Encounter for screening for malignant neoplasm of prostate
CPT/HCPCS: 36415; 80053; 80061; 81003; 82043; 82570; 84153; 84443; 85025

== ENCOUNTER 2024-11-29 15:18 | Outpatient (AMB) | payer BC, SELFPAY ==
[2024-11-29 15:36] VITALS: BP 122/76; PULSE 80; RESP 16; O2SAT 96; BMI 41.0
--- NOTE | 2024-11-29 15:36 | A.OFFPC_ITS ---
Vital Signs 11/29/24 15:36 Height 5 ft 9 in Weight 278 lb BMI 41.0 BP 122/76 Blood Pressure Location Lt brachial Position Sitting Respiration 16 Pulse 80 Pulse Source Pulse Oximeter Pulse Oximetry (%) 96 Oxygen Delivery Method Room Air Intake Visit Reasons: PE Contact Center Professional Required: No Accompanied by: Self / Same As Patient Allergies Antihistamines Adverse Reaction (Intermediate, Uncoded 05/19/24 15:16) Rash Medication List - Last Reconciled 11/29/24 by HEIDI Rosenthal atorvastatin 20 mg PO BEDTIME blood sugar diagnostic (OneTouch Ultra Test strips) Test blood sugar once a day blood-glucose meter ([place] [employer]Touch Ultra2 Meter) Test blood sugar once a day lancets ([place] [employer]Touch Delica Plus Lancet) Test blood sugar once a day omega-3 acid ethyl esters 2 caps PO BID 90 days Tobacco use date assessed: 11/29/24 Dental Screening Dental Screen Date: 11/29/24 Did you have a dental visit in the last 12 months?: Yes Did you have a dental problem in the last 6 months where you did not have access to dental care?: No HPI PE HPI Details History of Present Illness The patient is a 59-year-old male presenting for a physical examination and diabetes management. The patient has a history of diabetes mellitus, but he has not been regularly monitoring his blood glucose levels. His recent hemoglobin A1c level was 5.7%, indicating good glycemic control. The patient is also morbidly obese and acknowledges the need for weight loss. He is aware of his condition and its implications on his health. Preventative care measures have been addressed, with colon cancer screening being up to date. The patient denies any abdominal pain, blood in stool, constipation, diarrhea, fevers, chills, chest pain, or shortness of breath. He also denies any suicidal or homicidal ideation. The patient is currently on atorvastatin/omega 3s for cholesterol management. He is advised to follow up in six months and to complete laboratory tests in the near future. Health Maintenance - Colon cancer screening is up to date - Immunizations discussed and can be obt ained at the pharmacy Social History Review of Systems - Gastrointestinal: Denies abdominal damaris n, blood in stool, constipation, diarrhea - General: Denies fevers, chills - Cardiovascular: Denies chest pain, almaz rtness of breath - Psychiatric: Denies suicidal ideation, homicidal ideation Physical Exam General: Cooperative, healthy appearing, comfortable, no acute distress and well developed, morbid obesity Orientation: Patient oriented x3 Limitations: No limitations Head: Normal to inspection Ears: Hearing grossly normal bilaterally Nose: Normal external nose present Face and sinus: Normal facial exam Eyes: Appearance normal, both eyes and all related structures Neck: Normal visual inspection and Yes full ROM Respiratory: Normal respiratory effort and able to speak in complete sentences. Clear to auscultation bilaterally Cardiovascular: Regular rate and rhythm. Normal S1 and S2 GI: Normal to inspection. Soft to palpation and nontender : testicles without masses/lesions and no hernias appreciated Skin: No rashes or lesions noted Neuro: Patient oriented x3 Extremities: Normal to inspection Results - Labs: Hemoglobin A1c level at 5.7% Plan 1. Diabetes Mellitus The patient has diabetes mellitus with a recent hemoglobin A1c of 5.7%, indicating good control. He has not been regularly monitoring his blood glucose levels and is advised to do so. Follow-up is scheduled in six months, and laboratory tests are recommended in the near future. 2. Morbid Obesity The patient is morbidly obese and acknowledges the need for weight loss. Weight management strategies were discussed, and the patient is encouraged to pursue these actively. 3. Preventative Care Preventative care measures include up-to-date colon cancer screening and immunizations, which can be obtained at the pharmacy. Discussion Notes I discussed with the patient the importance of regular blood glucose monitoring and maintaining good glycemic control. We also talked about the need for weight loss due to his morbid obesity and encouraged him to pursue weight management strategies. Preventative care measures, including colon cancer screening and immunizations, were reviewed, and he was advised to obtain necessary vaccinations at his pharmacy. A follow-up appointment is scheduled for six months, with laboratory tests recommended in the near future. Patient Instructions - Monitor blood glucose levels regularly . - Focus on weight loss and follow weight management strategies. - Obtain recommended immunizations at [facility] pharmacy. - Schedule and attend follow-up appointm ent in six months. - Complete laboratory tests as advised. [facility] Medical History Rotator cuff rupture (~08/2022) Seborrheic dermatitis Fatty liver Back pain Sciatica Elevated cholesterol Surgical History H/O colonoscopy No pertinent past surgical history Social History Housing: House Alcohol intake: current Patient Tobacco Use Status: Never used Tobacco e-Cigarette/Vaping Use: Never Used Current occupational status: employed Cognitive needs: No Hearing needs: No Vision needs: No Questionnaire Thrive Questionnaire Date Thrive assessed: 05/12/24 I am a: Patient What is your living situation today?: I have a steady place to live Within the past 12 months, did the food you bought not last and you didn't have the money to get more?: Never true Within the past 12 months, did you worry whether your food would run out before you got money to buy more?: Never true Do you have trouble paying for medicines?: No Do you have trouble getting transportation to medical appointments?: No Do you have trouble paying your heating and electricity bill?: No Do you have trouble taking care of your child, family member or friend?: No Do you have trouble with day-to-day activities such as bathing, preparing meals, shopping, managing finances, etc.?: No Are you currently unemployed and looking for a job?: No Are you interested in more education?: No Please select the resources that you would like help with: None Currently or been in a relationship where the following occur: No concerns reported THRIVE Score: 0 GHASSAN-7 AMB Questionnaire GHASSAN-7 Date GHASSAN - 7 assessed: 05/19/24 Source: Developed by Drs. Scott Avendano, Dayanna Bolanos, Eamon Guajardo and colleagues, with an educational jazz from [employer]. Physical exam (Primary Care) Vital Signs: Last Vital Signs Pulse 80 11/29/24 15:36 Resp 16 11/29/24 15:36 BP 122/76 11/29/24 15:36 Pulse Ox 96 11/29/24 15:36 Oxygen Delivery Method Room Air 11/29/24 15:36 BMI result Body Mass Index 41.0 Tobacco/Smoking Status: Tobacco use Status Tobacco use date assessed 11/29/24 11/29/24 15:38 Patient Tobacco Use Status Never used Tobacco 11/29/24 15:38 e-Cigarette/Vaping Use Never Used 11/29/24 15:38 Thrive Assessment: Date of Thrive Assessment Date Thrive assessed 05/12/24 11/29/24 15:38 Currently or been in a relationship where the following occur: No concerns reported Coding Level of Care Code Est Pt Level 3 (39595) Est Pt Prev Care 40-64y(77230) Diagnoses Diabetes E11.9 Screening PSA (prostate specific antigen) Z12.5 Physical exam Z00.00 Assessment & Plan Assessment & Plan (1) Diabetes: Code(s): E11.9 - Type 2 diabetes mellitus without complications Category: Medical (2) Screening PSA (prostate specific antigen): Code(s): Z12.5 - Encounter for screening for malignant neoplasm of prostate Category: Medical (3) Physical exam: Code(s): Z00.00 - Encounter for general adult medical examination without abnormal findings Category: Medical Plan . Orders: Orders Comprehensive Ramah. Panel Fast Today E11.9 - Type 2 diabetes mellitus without complications TSH reflex Free T4 Today E11.9 - Type 2 diabetes mellitus without complications Lipid Panel Today E11.9 - Type 2 diabetes mellitus without complications Microalbumin, Random (w Creat) Today E11.9 - Type 2 diabetes mellitus without complications Complete Blood Count Auto Diff Today E11.9 - Type 2 diabetes mellitus without complications UA CC w/rflx Micro + Cult Today E11.9 - Type 2 diabetes mellitus without complications Prostate Specific Antigen Scr Today Z12.5 - Encounter for screening for malignant neoplasm of prostate AMB Hemoglobin A1c Today Z13.9 - Encounter for screening, unspecified Medications: Refilled atorvastatin 20 mg PO BEDTIME 90 tabs 1RF omega-3 acid ethyl esters 2 caps PO BID 360 caps 1RF 90 days
== END 2024-11-29 16:23 | disposition home or self-care (01) ==
LOC: HO.HMCC 15:19
PROVIDERS: PCP Nurse Practitioner Family; Visit Provider Nurse Practitioner Family
DX: Z00.00 Encounter for general adult medical examination without abnormal findings (principal); E11.9 Type 2 diabetes mellitus without complications; Z12.5 Encounter for screening for malignant neoplasm of prostate

== ENCOUNTER → 2024-11-29 15:18 | Outpatient (BNVA) | payer OTHER, SELFPAY | PROVIDERS: PCP Nurse Practitioner Family; Visit Provider Nurse Practitioner Family | DX: Z00.00 Encounter for general adult medical examination without abnormal findings (principal); E11.9 Type 2 diabetes mellitus without complications; E66.01 Morbid (severe) obesity due to excess calories; Z68.41 Body mass index [BMI] 40.0-44.9, adult; Z79.899 Other long term (current) drug therapy | CPT/HCPCS: 83036 ==

== ENCOUNTER 2024-12-16 06:03 | Outpatient (REF) | payer BC, SELFPAY ==
[2024-12-16 10:23] LABS: MANUAL DIFF FLAG NO
[2024-12-16 10:40] LABS: Hematocrit 46.2 % (42.0-52.0); Hemoglobin 15.4 g/dl (14.0-18.0); Imm Gran Abs Auto 0.03 X10*3/uL (0.00-0.03); Imm Gran Pct Auto 0.4 % (0.0-0.4); Lymphocytes Absolute Auto 2.4 X10*3/uL (1.2-4.9); Mean Corpuscular HGB Conc 33.3 g/dl (31.0-36.0); Mean Corpuscular Hemoglobin 29.6 pg (27.0-33.0); Mean Corpuscular Volume 88.7 fL (80.0-98.0); NRBC Abs Auto 0.000 X10*3/uL (0.0-0.012); NRBC Pct Auto 0.0 /100WBC (0.0-0.2); Platelet Count 318 X10*3/uL (160-400); Red Blood Count 5.21 X10*6/uL (4.60-5.80); White Blood Count 7.2 X10*3/uL (4.8-10.8)
[2024-12-16 10:53] LABS: Alanine Aminotransferase 41 U/L (0-40); Albumin Level 4.6 g/dL (3.5-5.0); Alkaline Phosphatase 73 U/L (39-117); Anion Gap 11 (12-20); Aspartate Amino Transferase 38 U/L (5-37); Blood Urea Nitrogen 19 mg/dL (9-16); Calcium 9.4 mg/dL (8.4-10.2); Carbon Dioxide 27 mmol/L (22-29); Chloride 104 mmol/L (96-108); Cholesterol 157 mg/dL (<200); Estimated Glomerular Filt Rate > 60; HDL Cholesterol 34 mg/dL (>40); Potassium 4.4 mmol/L (3.3-5.1); Sodium 138 mmol/L (135-145); Total Protein 7.2 g/dL (6.5-8.0); Triglycerides 256 mg/dL (<150)
[2024-12-16 11:01] LABS: Appearance Urine Clear; Glucose Urine UA Negative (Negative); PH 5.5 (5.0-9.0); Specific Gravity - Urine 1.010 (1.005-1.025)
== END 2024-12-16 06:04 | disposition home or self-care (01) ==
LOC: HO.HMGCLDS 06:03
PROVIDERS: PCP Nurse Practitioner Family; Visit Provider Nurse Practitioner Family
DX: E11.9 Type 2 diabetes mellitus without complications (principal); Z12.5 Encounter for screening for malignant neoplasm of prostate
CPT/HCPCS: 36415; 80053; 80061; 81003; 82043; 82570; 84153; 84443; 85025